=== PATIENT | female | born 1965 | race Caucasian/White ===

== ENCOUNTER 2017-01-17 21:44 | Emergency (ER) | payer MEDICAID ==
[~2017-01-17] VITALS: Ht 162.6 cm; Wt 142.0 kg
[~2017-01-17 21:44] MED LIST: ALBU-136 IH; ASPI81EC97 PO; DOCU-67 PO; ESCI10TA61 PO; HYDR-4446 PO; INSU100S22 SUBQ; METO10TA10 PO; Metoprolol Tartrate PO; Pantoprazole Sodium PO; SYN.1 PO
[2017-01-17 21:52] VITALS: BP 137/86
[2017-01-17 22:16] LABS: BASOPHILS # (AUTO) 0.1 K/uL (0.00-0.22); BASOPHILS % (AUTO) 0.8 % (0.0-2.0); EOSINOPHILS # (AUTO) 0.4 K/uL (0-0.4); EOSINOPHILS % (AUTO) 4.1 % (0.0-4.0); HEMATOCRIT 36.4 % (36-48); HEMOGLOBIN 11.5 g/dL (12.0-16.0); LYMPHOCYTES % (AUTO) 30.8 % (20.5-51.1); MEAN CORPUSCULAR HEMOGLOBIN 26 pg (27-31); MEAN CORPUSCULAR HGB CONC 32 g/dL (33-37); MEAN CORPUSCULAR VOLUME 83 fL (80-94); MONOCYTES # (AUTO) 0.7 K/uL (0.8-1.0); MONOCYTES % (AUTO) 7.2 % (1.7-9.3); NEUTROPHILS # (AUTO) 5.5 K/uL (1.8-7.7); NEUTROPHILS % (AUTO) 57.1 % (42.2-75.2); PLATELET COUNT (AUTO) 317 K/uL (140-450); RED CELL DISTRIBUTION WIDTH 18.6 % (11.6-13.7); WHITE BLOOD COUNT (AUTO) 9.7 K/uL (4.8-10.8)
[2017-01-17 22:33] LABS: ANION GAP 10.6 (8-16); CALCIUM 9.3 mg/dL (8.5-10.1); CARBON DIOXIDE 34.3 mmol/L (21-32); CREATININE 1.3 mg/dL (0.6-1.3); POTASSIUM 3.9 mmol/L (3.5-5.1)
[2017-01-17 22:36] LABS: INR 1.1 (0.8-1.2); PARTIAL THROMBOPLASTIN TIME 25.6 secs (22-35.6)
[2017-01-17 22:40] LABS: ALBUMIN 3.5 g/dL (3.4-5.0); TOTAL BILIRUBIN 0.4 mg/dL (0.0-1.0); TOTAL PROTEIN, SERUM 7.7 g/dL (6.4-8.2)
--- NOTE | 2017-01-18 01:20 | NUR ---
TO ER BED 8
--- NOTE | 2017-01-18 01:35 | NUR ---
51 Y/O HERE W/C/O SOB, CHEST/ BACK PAIN AND EDEMA TO LOWER EXTREMITITES AND HANDS X YESTERDAY. DENIES ANY FEVER, N/V/D. PT ON GUM ROLLING MACHINE TENDER VSS. EDEMA TO LOWER EXTREMITIES NOTED, NO S/S OF RESP DISTRESS, O2 SAT 95% RA, SLIGHTLY WHEEZES BILATERAL, NO NASAL FLARING. ER MD MADE AWARE.
--- NOTE | 2017-01-18 01:35 | NUR ---
Note undone in EDM - 01/18/17 at 0238 by TAMMI 51 Y/O HERE W/C/O SOB, CHEST/ BACK PAIN AND EDEMA TO LOWER EXTREMITITES AND HANDS X YESTERDAY. DENIES ANY FEVER, N/V/D. PT ON RADIOLOGIC ELECTRONIC SPECIALIST VSS. EDEMA TO LOWER EXTREMITIES NOTED, NO S/S OF RESP DISTRESS, O2 SAT 95% RA, NO WHEEZES PRESENT. ER MADE AWARE.
[2017-01-18] MEDS ORDERED: predniSONE 20 MG TAB PO ONE (02:20)
[2017-01-18] MEDS ORDERED: ALBUTEROL 0.083% 2.5 MG/3 ML NEBU INH ONE (02:20)
[2017-01-18] MEDS ORDERED: ALBUTEROL SULFATE/IPRATROPIU 3 ML SOL IH ONE (02:20)
[2017-01-18] MEDS ORDERED: predniSONE 20 MG TAB ONE (02:37)
--- NOTE | 2017-01-18 02:39 | NUR ---
RT AT BEDSIDE, PT ON BREATHING TX
[2017-01-18 02:53] VITALS: BP 126/69
--- NOTE | 2017-01-18 02:54 | NUR ---
Patient discharged with v/s stable. Written and verbal after care instructions given and explained. Patient alert, oriented and verbalized understanding of instructions. Ambulatory with steady gait. All questions addressed prior to discharge. ID band removed. Patient advised to follow up with PMD. Rx of PREDNISONE AND MOTRIN given. Patient educated on indication of medication including possible reaction and side effects. Opportunity to ask questions provided and answered.
== END 2017-01-18 02:53 | disposition home or self-care (01) ==
LOC: MED 21:44
DX: R07.89 Other chest pain (principal); R06.02 Shortness of breath; J45.909 Unspecified asthma, uncomplicated; E11.9 Type 2 diabetes mellitus without complications; I10 Essential (primary) hypertension; Z79.4 Long term (current) use of insulin; Z79.82 Long term (current) use of aspirin
CPT/HCPCS: 36415; 71010; 80053; 83880; 84484; 85025; 85610; 85730; 93005; 94640; 99285; J7512; J7613; J7620

== ENCOUNTER 2017-04-13 17:25 | Emergency (ER) | payer MEDICAID ==
[~2017-04-13] VITALS: Ht 165.1 cm; Wt 139.9 kg
--- NOTE | 2017-04-13 17:43 | NUR ---
CALLED PT TO BE TRIAGED FROM LOBBY; NO ANSWER; WILL CALL AGAIN.
[2017-04-13 17:46] VITALS: BP 141/85
[2017-04-13] MEDS ORDERED: NACL 0.9% 1,000 ML IV SCH (17:58)
[2017-04-13] MEDS ORDERED: NACL 0.9% 1,000 ML IV ONE (18:00)
[2017-04-13] MEDS ORDERED: INSULIN HUMAN REGULAR 100 UNITS/ML 10 ML VIAL IVP ONE ×2 (18:00→19:05)
[2017-04-13 18:23] LABS: BASOPHILS # (AUTO) 0.1 K/uL (0.00-0.22); EOSINOPHILS # (AUTO) 0.3 K/uL (0-0.4); EOSINOPHILS % (AUTO) 2.6 % (0.0-4.0); HEMATOCRIT 35.1 % (36-48); HEMOGLOBIN 10.9 g/dL (12.0-16.0); LYMPHOCYTES # (AUTO) 3.1 K/uL (2.5-16.5); LYMPHOCYTES % (AUTO) 32.1 % (20.5-51.1); MEAN CORPUSCULAR HEMOGLOBIN 26 pg (27-31); MEAN CORPUSCULAR HGB CONC 31 g/dL (33-37); MEAN CORPUSCULAR VOLUME 85 fL (80-94); MONOCYTES # (AUTO) 0.7 K/uL (0.8-1.0); MONOCYTES % (AUTO) 7.2 % (1.7-9.3); NEUTROPHILS # (AUTO) 5.5 K/uL (1.8-7.7); NEUTROPHILS % (AUTO) 57.1 % (42.2-75.2); PLATELET COUNT (AUTO) 268 K/uL (140-450); RED BLOOD CELL COUNT(AUTO) 4.15 MIL/uL (4.20-5.40); RED CELL DISTRIBUTION WIDTH 19.3 % (11.6-13.7); WHITE BLOOD COUNT (AUTO) 9.7 K/uL (4.8-10.8)
[2017-04-13 18:36] LABS: ALBUMIN 3.5 g/dL (3.4-5.0); ANION GAP 13.1 (8-16); CARBON DIOXIDE 29.6 mmol/L (21-32); CREATININE 1.2 mg/dL (0.6-1.3); INR 1.1 (0.8-1.2); POTASSIUM 4.7 mmol/L (3.5-5.1); PROTHROMBIN TIME 10.8 secs (10.8-13.4); TOTAL BILIRUBIN 0.5 mg/dL (0.0-1.0); TOTAL PROTEIN, SERUM 8.3 g/dL (6.4-8.2)
[2017-04-13 18:37] LABS: PARTIAL THROMBOPLASTIN TIME 19.6 secs (22-35.6)
[2017-04-13] MEDS ORDERED: NACL 0.9% 2,000 ML IV ONE (19:05)
--- NOTE | 2017-04-13 19:10 | NUR ---
51Y/F PATIENT PRESENTS TO ED WITH 51F BIB FRIEND C/O HIGH BLOOD SUGAR AND RAPID HEART RATE X TODAY, WAS ADMITTED IN HOSPITAL 5 DAYS AGO FOR HTN, HYPERGLYCEMIA, DENIES N/V/D; SKIN IS PINK/WARM/DRY; AAOX4 WITH EVEN AND STEADY GAIT; LUNGS CLEAR BL; HR EVEN AND REGULAR; PT DENIES ANY FEVER, CP, SOB, OR COUGH AT THIS TIME; BOTH LEGS PAIN, PATIENT STATES PAIN OF 9/10 AT THIS TIME; VSS; PATIENT POSITIONED FOR COMFORT; HOB ELEVATED; BEDRAILS UP X2; BED DOWN. ER MD MADE AWARE OF PT STATUS.
--- NOTE | 2017-04-13 19:12 | NUR ---
Patient being evaluated by DR. MENA at bedside.
[2017-04-13] MEDS ORDERED: KETOROLAC 30 MG/ML VIAL IVP ONE (19:45)
--- NOTE | 2017-04-13 21:10 | NUR ---
Patient discharged with v/s stable. Written and verbal after care instructions given and explained. Patient alert, oriented and verbalized understanding of instructions. Ambulatory with steady gait. All questions addressed prior to discharge. ID band removed. Patient advised to follow up with PMD. Rx of NAPROSYN 500 MG given. Patient educated on indication of medication including possible reaction and side effects. Opportunity to ask questions provided and answered.
[2017-04-13 21:11] VITALS: BP 139/91
== END 2017-04-13 21:10 | disposition home or self-care (01) ==
LOC: MED 17:25
DX: E11.65 Type 2 diabetes mellitus with hyperglycemia (principal); I10 Essential (primary) hypertension; E03.9 Hypothyroidism, unspecified; J45.909 Unspecified asthma, uncomplicated; F41.9 Anxiety disorder, unspecified; Z79.4 Long term (current) use of insulin; Z79.899 Other long term (current) drug therapy; Z79.82 Long term (current) use of aspirin
CPT/HCPCS: 36415; 71010; 80053; 82150; 82553; 82948; 83690; 83880; 84484; 85025; 85610; 85730; 93005; 96361; 96374; 96375; 99285; J1815; J1885; J7030; Q0092

== ENCOUNTER 2018-12-14 15:08 | Emergency (ER) | payer MEDICAID ==
[~2018-12-14] VITALS: Ht 167.6 cm; Wt 113.4 kg
[~2018-12-14 15:08] MED LIST changes: +ACET-8386 PO; +ATOR20TA40 PO; +CELE-136 PO; +DOCU-299 PO; -DOCU-67 PO; -ESCI10TA61 PO; +FURO20TA8 PO; +GABA600T12 PO; -HYDR-4446 PO; +LACT10CA PO; +LEVO750T2 PO; +LISI-424 PO; +METF-336 PO; -METO10TA10 PO; -Metoprolol Tartrate PO; -SYN.1 PO; +[UNRECOGNIZED DRUG - CODE] PO
[2018-12-14 15:15] VITALS: BP 117/54
--- NOTE | 2018-12-14 15:25 | NUR ---
PT AMBULATED TO ER BED 07
--- NOTE | 2018-12-14 15:27 | NUR ---
PT PRESENTED TO THE ED WITH THE CHIEF C/O LEFT CHEST PAIN STARTED A WHILE AGO. PT REPORTS PAIN RADIATES TO NECK AND BACK. DENIES ANY NUUSEA OR VOMITING AT THIS TIME. DENIES DIZZINESS. REPORTS DIFFICULTY BREATHING. CLEAR LUNGS SOUND. PLACED PT ON O2 AT 2 LTR/MIN. SPO2 96%. GENERALIZED EDEMA NOTED. STATES PAIN 07/08. ER MD AWARE.
[2018-12-14] MEDS ORDERED: FUROSEMIDE 100 MG/10 ML VIAL IVP ONE (15:30)
[2018-12-14 16:19] LABS: APPEARANCE,URINE CLEAR (CLEAR); BILIRUBIN,URINE NEGATIVE (NEGATIVE); BLOOD, URINE NEGATIVE (NEGATIVE); COLOR,URINE YELLOW (YELLOW); LEUKOCYTE ESTERASE ,URINE NEGATIVE (NEGATIVE); NITRITE, URINE NEGATIVE (NEGATIVE); UGLUCOSE 3+ (NEGATIVE)
[2018-12-14] MEDS ORDERED: MORPHINE SULFATE 4 MG/ML SYR IVP ONE ×2 (16:20→23:00)
[2018-12-14] MEDS ORDERED: MAG SULF 2000 MG/WATER PREMIX 50 ML IV ONE (16:20)
[2018-12-14 16:21] LABS: BASOPHILS # (AUTO) 0.1 K/uL (0.00-0.22); BASOPHILS % (AUTO) 1.1 % (0.0-2.0); EOSINOPHILS # (AUTO) 0.2 K/uL (0-0.4); EOSINOPHILS % (AUTO) 2.3 % (0.0-4.0); HEMATOCRIT 24.8 % (36-48); HEMOGLOBIN 7.6 g/dL (12.0-16.0); LYMPHOCYTES # (AUTO) 2.2 K/uL (2.5-16.5); LYMPHOCYTES % (AUTO) 31.7 % (20.5-51.1); MEAN CORPUSCULAR HEMOGLOBIN 22 pg (27-31); MEAN CORPUSCULAR HGB CONC 31 g/dL (33-37); MEAN CORPUSCULAR VOLUME 73.1 fL (80-94); MONOCYTES # (AUTO) 0.4 K/uL (0.8-1.0); MONOCYTES % (AUTO) 6.3 % (1.7-9.3); NEUTROPHILS % (AUTO) 58.6 % (42.2-75.2); PLATELET COUNT (AUTO) 244 K/uL (140-450); RED BLOOD CELL COUNT(AUTO) 3.39 MIL/uL (4.20-5.40); WHITE BLOOD COUNT (AUTO) 6.9 K/uL (4.8-10.8)
[2018-12-14 16:36] LABS: ANION GAP 8.9 (8-16); CARBON DIOXIDE 31.1 mmol/L (21-32); CREATININE 1.1 mg/dL (0.6-1.3)
[2018-12-14 16:41] LABS: ACETONE, SERUM NEGATIVE (NEGATIVE)
[2018-12-14 16:42] LABS: ALBUMIN 3.3 g/dL (3.4-5.0); TOTAL BILIRUBIN 0.4 mg/dL (0.0-1.0)
[2018-12-14 16:44] LABS: PROTHROMBIN TIME 10.7 secs (10.8-13.4)
[2018-12-14] MEDS ORDERED: INSULIN REGULAR, HUMAN 100 UNIT/ML VIAL IVP ONE (16:50)
[2018-12-14] MEDS ORDERED: FAMOTIDINE 20 MG/2 ML VIAL IVP ONE (16:50)
[2018-12-14] MEDS ORDERED: ONDANSETRON 4 MG/2 ML VIAL IVP ONE (17:00)
--- NOTE | 2018-12-14 17:27 | NUR ---
PT VERBALIZED FEELING BETTER. PT STILL REPORTS LITTLE DIFFICULTY BREATHING. CONTINUE ON O2 AT 2 LTR/MIN. DENIES ANY NAUSEA, DIZZINESS. VERBALIZED PAIN DECREASED.
[2018-12-14 17:39] LABS: MAGNESIUM 1.7 mg/dL (1.8-2.4); URIC ACID 4.1 mg/dL (2.6-7.2)
[2018-12-14 18:55] LABS: THYROID STIMULATING HORMONE 212.73 uIU/mL (0.34-3.74)
--- NOTE | 2018-12-14 19:19 | NUR ---
REPROT GIVEN TO SPOUTER RN FOR CONTINUITY OF CARE.
--- NOTE | 2018-12-14 19:20 | NUR ---
RECEIVED REPORT FROM AM SHIFT. WILL CONTINUE CONTINUITY OF CARE.
--- NOTE | 2018-12-14 20:45 | NUR ---
ETA FOR TRANSER TO [facility] 60 MIN.
[2018-12-14] MEDS ORDERED: MORPHINE SULFATE 2 MG/ML SYR ONE (23:09)
--- NOTE | 2018-12-14 23:17 | NUR ---
PT CO PAIN 10/ ADMINISTERED MORPHINE 2MG IVP. WILL CONTINUE TO MONITOR.
--- NOTE | 2018-12-15 00:03 | NUR ---
PT RESTING QUIETLY AT THIS TIME. NO SIGNS OF ACUTE DISTRESS AT THIS TIME.
--- NOTE | 2018-12-15 00:28 | NUR ---
Note mitalione in EDM - 12/15/18 at 0030 by [email or web address] 7Y/F BIB PARENTS FOR NOSEBLEED 30-40 MIN. DENIES PAIN, DENIES NVD. AOX4. ABLE TO VERBALIZE NEEDS. EVEN UNLABORED BREATHING. CONTINUE TO MONITOR.
--- NOTE | 2018-12-15 00:51 | NUR ---
[facility] AT BEDSIDE.
--- NOTE | 2018-12-15 00:55 | NUR ---
PT TAKEN BY [facility] TO [facility] ROOM 304
--- NOTE | 2018-12-15 00:55 | NUR ---
Patient to be transferred to [facility]. Is being transferred due to ABNORMAL EKG. Receiving facility has accepting physician and available space. ER physician has signed transfer form. Patient or responsible democrat has agreed to transfer and signed form. Patient belongings inventoried and will be sent with patient. Copy of nursing notes, lab reports, EKG, Physicians Orders and X-rays to be sent with patient. Report called to J CARLOS at receiving facility. [facility] ambulance service has been called for transfer. ETA is 40.
[2018-12-15 01:39] VITALS: BP 109/59
== END 2018-12-15 00:55 | disposition short-term general hospital (02) ==
LOC: MED 15:08
DX: I11.0 Hypertensive heart disease with heart failure (principal); I50.9 Heart failure, unspecified; E11.65 Type 2 diabetes mellitus with hyperglycemia; E03.9 Hypothyroidism, unspecified; E66.01 Morbid (severe) obesity due to excess calories; J45.909 Unspecified asthma, uncomplicated; I10 Essential (primary) hypertension; E07.9 Disorder of thyroid, unspecified; Z68.41 Body mass index [BMI] 40.0-44.9, adult; Z79.2 Long term (current) use of antibiotics; Z79.84 Long term (current) use of oral hypoglycemic drugs
CPT/HCPCS: 36415; 71045; 80053; 81003; 82009; 82948; 83036; 83735; 83880; 84439; 84443; 84479; 84484; 84550; 85025; 85379; 85610; 85730; 93005; 96365; 96366; 96375; 96376; 99285; J1815; J1940; J2270; J2405; J3475; J3490; Q0092

== ENCOUNTER 2019-12-10 10:21 | Emergency (ER) | payer MEDICAID ==
[~2019-12-10] VITALS: Ht 170.2 cm; Wt 122.9 kg
[2019-12-10 10:25] VITALS: BP 125/71
[2019-12-10] MEDS ORDERED: KETOROLAC 60 MG/2 ML VIAL IM ONE (11:30)
[2019-12-10 11:56] VITALS: BP 125/71
== END 2019-12-10 11:57 | disposition home or self-care (01) ==
LOC: MED 10:21
DX: M43.6 Torticollis (principal); J45.909 Unspecified asthma, uncomplicated; I11.9 Hypertensive heart disease without heart failure; E11.9 Type 2 diabetes mellitus without complications; E07.9 Disorder of thyroid, unspecified; Z98.890 Other specified postprocedural states
CPT/HCPCS: 72040; 82948; 96372; 99283; J1885

== ENCOUNTER 2021-05-28 20:33 | Inpatient (IN) | payer MEDICAID, SELFPAY ==
[~2021-05-28] VITALS: Ht 167.6 cm; Wt 122.9 kg
[2021-05-28 20:33] VITALS: BP 100/58
[~2021-05-28 20:33] MED LIST changes: +ALBU-118 IH; -ALBU-136 IH; -LISI-424 PO; +LISI-648 PO
--- NOTE | 2021-05-28 20:33 | NUR ---
NIGHAT DOS SANTOS TAKEN TO BED #6
[2021-05-28] MEDS ORDERED: ONDANSETRON 4 MG/2 ML VIAL IVP ONE (20:45)
[2021-05-28] MEDS ORDERED: FUROSEMIDE 40 MG/4 ML VIAL IVP ONE (20:45)
[2021-05-28] MEDS ORDERED: MORPHINE SULFATE 4 MG/ML SYR IVP ONE (20:45)
--- NOTE | 2021-05-28 20:54 | NUR ---
56 YO/F BIBA W C/O L SIDED CHEST PAIN 9/10 PRESSURE LIKE RADIATING TO L UPPER BACK INTERMITTENT X1 WEEK, MOST RECENT EPISODE CONSTANT X1 HOUR AND SLIGHT SOB. PATIENT DENIES N/V/D, OR DIZZYNESS, OR LIGHT-HEADED. S1 S2 PRESENT, +2 RADIAL PULSES, SWELLING TO BILATERAL UPPER AND LOWER EXTREMITIES NON-PITTING, SKIN WARM AND DRY, CAP REFIL <3SEC, LUNG SOUNDS CLEAR W BREATHING EVEN AND UNLABORED. PATIENT CONNECTED TO MONITOR W VSS 79HR, 100/58 BP, 19RR, 99 O2 SAT ON 2L NC. PATIENT LAYING IN BED LOCKED IN LOWEST POSITION, X1 SIDE RAIL UP, HOB ELEVATED. WILL CONTINUE TO MONITOR. PMH: HTN, DIABETES, CHF, ASTHMA, THYROID DZ, NEUROPATHY NKA
[2021-05-28 21:13] LABS: BASOPHILS # (AUTO) 0.1 K/uL (0.00-0.22); BASOPHILS % (AUTO) 1.9 % (0.0-2.0); EOSINOPHILS # (AUTO) 0.2 K/uL (0-0.4); EOSINOPHILS % (AUTO) 2.6 % (0.0-4.0); HEMATOCRIT 27.8 % (36-48); HEMOGLOBIN 8.4 g/dL (12.0-16.0); LYMPHOCYTES # (AUTO) 1.7 K/uL (2.5-16.5); LYMPHOCYTES % (AUTO) 26.1 % (20.5-51.1); MEAN CORPUSCULAR HEMOGLOBIN 24 pg (27-31); MEAN CORPUSCULAR HGB CONC 30 g/dL (33-37); MEAN CORPUSCULAR VOLUME 77.8 fL (80-94); MONOCYTES # (AUTO) 0.4 K/uL (0.8-1.0); MONOCYTES % (AUTO) 6.3 % (1.7-9.3); NEUTROPHILS # (AUTO) 4.1 K/uL (1.8-7.7); NEUTROPHILS % (AUTO) 63.1 % (42.2-75.2); PLATELET COUNT (AUTO) 234 K/uL (140-450); RED BLOOD CELL COUNT(AUTO) 3.57 MIL/uL (4.20-5.40); RED CELL DISTRIBUTION WIDTH 21.2 % (11.6-13.7); WHITE BLOOD COUNT (AUTO) 6.5 K/uL (4.8-10.8)
[2021-05-28 21:27] LABS: ALBUMIN 3.4 g/dL (3.4-5.0); ANION GAP 10.1 (8-16); CARBON DIOXIDE 31.8 mmol/L (21-32); POTASSIUM 3.9 mmol/L (3.5-5.1); PROTHROMBIN TIME 10.8 secs (10.8-13.4); TOTAL BILIRUBIN 0.3 mg/dL (0.0-1.0)
--- NOTE | 2021-05-28 22:28 | NUR ---
PATIENT LAYING IN BED LOCKED IN LOWEST POSTION, X1 SIDERAIL UP, HOB ELEVATED. CONNECTED TO MONITOR W VSS. PATIENT REPORTS FEELING A LITTLE BETTER. BREATHING EVEN AND UNLABORED, NAD NOTED, WILL CONTINUE TO MONITOR.
--- NOTE | 2021-05-28 22:30 | NUR ---
PATIENT REFUSING TO BE ON NC O2 AT THIS TIME. PATIENT O2 SAT AT 88% RA. EDUCATED PATIENT ON O2 SATURATION. PATIENT REPORTS SHE WILL PUT OXYGEN BACK ON WHEN SHE WANTS TO , REPORTS SHE FEELS GOOD W/O THE OXYGEN DENIES SOB.
--- NOTE | 2021-05-28 22:32 | NUR ---
PATIENT O2 SATURATION AT 86%, SPOKE TO PATIENT IN REGARDS TO NC USE. PATIENT AGREED TO BE PLACED BACK ON NC 2L. O2SAT IMPROVED TO 95%. WILL CONTINUE TO MONITOR.
--- NOTE | 2021-05-29 00:15 | NUR ---
PATIENT AMBULATED TO BATHROOM W STEADY GAIT.
--- NOTE | 2021-05-29 01:25 | NUR ---
PATIENT LAYING IN BED W EYES CLOSED L LATERAL POSITION. BED LOCKED IN LOWEST POSTION, HOB ELEVATED, X1 SIDERAIL UP. BREATHING EVEN AND UNLABORED. NAD NOTED. WILL CONTINUE TO MONITOR.
[2021-05-29] MEDS ORDERED: KCL 20 MEQ/WATER INJ PREMIX 200 ML IV PRN (01:50)
[2021-05-29] MEDS ORDERED: ACETAMINOPHEN 325 MG TAB PO PRN (01:50)
[2021-05-29] MEDS ORDERED: ZOLPIDEM 5 MG TAB PO PRN (01:50)
[2021-05-29] MEDS ORDERED: MAGNESIUM OXIDE 400 MG TAB PO PRN (01:50)
[2021-05-29] MEDS ORDERED: MAG SULF 2000 MG/WATER PREMIX 50 ML IV PRN (01:50)
[2021-05-29] MEDS ORDERED: ONDANSETRON 4 MG/2 ML VIAL IVP PRN (01:50)
[2021-05-29] MEDS ORDERED: POTASSIUM CHLORIDE 10 MEQ TABER PO PRN (01:50)
--- NOTE | 2021-05-29 04:00 | NUR ---
DOWNTIME. SEE PATIENT CHART FOR PATIENT STATUS AT THIS TIME.
--- NOTE | 2021-05-29 07:20 | NUR ---
Pt report given to MORIS ARECHIGA . Transfer of care at this time.
--- NOTE | 2021-05-29 07:20 | NUR ---
Report and continuation of care received from MORIS Snell.
--- NOTE | 2021-05-29 07:39 | NUR ---
Patient resting with both eyes closed in position of comfort. SpO2 98% on 2L via N/C. mainframe systems administrator remains in place. RR even/unlabored. No distress noted. Bed locked in lowest position, side rails x 1, call light in reach.
--- NOTE | 2021-05-29 07:45 | NUR ---
IV flushed with NS 0.9% with good blood return; no swelling, coolness, pain noted.
[2021-05-29 07:58] LABS: BASOPHILS # (AUTO) 0.1 K/uL (0.00-0.22); EOSINOPHILS # (AUTO) 0.1 K/uL (0-0.4); EOSINOPHILS % (AUTO) 0.9 % (0.0-4.0); HEMATOCRIT 31.5 % (36-48); HEMOGLOBIN 9.5 g/dL (12.0-16.0); LYMPHOCYTES # (AUTO) 1.2 K/uL (2.5-16.5); LYMPHOCYTES % (AUTO) 13.9 % (20.5-51.1); MEAN CORPUSCULAR HEMOGLOBIN 24 pg (27-31); MEAN CORPUSCULAR HGB CONC 30 g/dL (33-37); MEAN CORPUSCULAR VOLUME 78.2 fL (80-94); MONOCYTES # (AUTO) 0.7 K/uL (0.8-1.0); MONOCYTES % (AUTO) 8.1 % (1.7-9.3); NEUTROPHILS # (AUTO) 6.7 K/uL (1.8-7.7); NEUTROPHILS % (AUTO) 76.1 % (42.2-75.2); PLATELET COUNT (AUTO) 178 K/uL (140-450); RED BLOOD CELL COUNT(AUTO) 4.03 MIL/uL (4.20-5.40); RED CELL DISTRIBUTION WIDTH 21.1 % (11.6-13.7); WHITE BLOOD COUNT (AUTO) 8.8 K/uL (4.8-10.8)
--- NOTE | 2021-05-29 08:00 | NUR ---
Patient requesting to hold breakfast tray at this time.
[2021-05-29 08:54] LABS: ANION GAP 12.1 (8-16); POTASSIUM 4.1 mmol/L (3.5-5.1)
[2021-05-29] MEDS: ENOXAPARIN 40 MG/0.4 ML SYR SUBQ SCH (09:26)
--- NOTE | 2021-05-29 09:26 | NUR ---
Breakfast meal tray at bedside. Patient completing meal at this time. All needs met.
--- NOTE | 2021-05-29 09:48 | NUR ---
Patient sitting upright completed 70% of meal at this time. Apple juice given. Patient denies any SOB. VSS; respirations even/unlabored. Bed locked in lowest position, side rails x 1.
--- NOTE | 2021-05-29 10:45 | NUR ---
Patient resting in high-fowlers in position of comfort. bus driver/monitor in place. VSS; respirations even/unlabored. SpO2 98% on 2L NC. Bed locked in lowest position, side rails x 1.
--- NOTE | 2021-05-29 11:25 | NUR ---
Dr. Nava is evaluating patient at bedside.
[2021-05-29] MEDS ORDERED: DEXTROSE 50% 50 ML SYR IVP PRN (11:30)
[2021-05-29] MEDS ORDERED: DOCUSATE SODIUM 100 MG GELCAP PO PRN (11:35)
--- NOTE | 2021-05-29 11:40 | NUR ---
ABG COMPLETED SUPPLEMENTAL OXYGEN AT 2 LPM VIA NC DIAGNOSTIC SATURATION MONITORING 97%
--- NOTE | 2021-05-29 11:40 | NUR ---
RT at bedside for ABG
--- NOTE | 2021-05-29 11:45 | NUR ---
Patient resting in high-fowlers in position of comfort. panel monitor in place. VSS; respirations even/unlabored. SpO2 96% on 2L NC. Bed locked in lowest position, side rails x 1.
--- NOTE | 2021-05-29 11:52 | NUR ---
CALLED DR. SHELLIE BECKFORD AT [facility] [phone] SPOKE BARBER/JUANCHO FUIL PAGE FORMENTIONED MD CALL BACK NUMBER GIVEN [phone]
[2021-05-29] MEDS: BLOOD GLUCOSE MONITORING 1 DEV DEV FS SCH ×3 (12:00→20:27)
[2021-05-29] MEDS: lisinopriL 5 MG TAB PO SCH (12:18)
[2021-05-29] MEDS: FUROSEMIDE 40 MG/4 ML VIAL IVP SCH ×2 (12:19→16:32)
--- NOTE | 2021-05-29 12:20 | NUR ---
RT at bedside for BiPAP 14/05 RATE 12 32%
[2021-05-29 12:25] VITALS: BP 127/74
--- NOTE | 2021-05-29 12:30 | NUR ---
Patient presents on phone with family. Patient tolerating mask well; denies any SOB, discomfort at this time. groundwater monitoring technician in place. VSS; respirations even/unlabored. SpO2 100% on BiPAP. Bed locked in lowest position, side rails x 1.
--- NOTE | 2021-05-29 12:39 | NUR ---
[address]ND CALL FOR DR. SHELLIE BECKFORD [phone] TO REVIEW ABG SAMPLE REPORT SPOKE TO FRED/BRANDON WILL PAGE FOREMENTIONED CALL BACK NUMBER GIVEN [phone]
[2021-05-29] MEDS: INSULIN LISPRO SLIDING SCALE 100 UNITS/ML VIAL SUBQ PRN (12:41)
--- NOTE | 2021-05-29 13:11 | NUR ---
PATIENT AMBULATED TO RESTROOM WITH STEADY/EVEN GAIT; REQUESTING TO VOID AFTER LASIX 40MG IVP.
--- NOTE | 2021-05-29 13:15 | NUR ---
Patient back onto bed and placed back onto BIPAP mask. Denies any SOB, discomfort at this time. playground monitor in place. VSS; respirations even/unlabored. SpO2 100% on BiPAP. Bed locked in lowest position, side rails x 1.
--- NOTE | 2021-05-29 14:30 | NUR ---
Patient resting in high-fowlers in position of comfort. equipment monitor phototypesetting in place. VSS; respirations even/unlabored. SpO2 100% on BiPAP. Bed locked in lowest position, side rails x 1.
--- NOTE | 2021-05-29 14:49 | NUR ---
Lab at bedside for redraw
--- NOTE | 2021-05-29 15:39 | NUR ---
Report given to Chantel advised of ETA 10 min.
--- NOTE | 2021-05-29 15:45 | NUR ---
Dr. Rodriguez is evaluating patient at bedside
[2021-05-29 16:00] VITALS: BP 109/74
--- NOTE | 2021-05-29 16:00 | NUR ---
Patient will be admitted to care of Dr. Nava. Admited to Telemetry. Will go to room 115. Belongings list completed. Report to MORIS Golden.
--- NOTE | 2021-05-29 16:00 | NUR ---
PT CAME TO THE UNIT FROM ED VIA GUREL. PT IS DIRECTED TO THE UNIT, CHANGED IN TO YELLOW GOWN, ALL BELONGING ARE PROVIDED. CHECKED VITALS, MRSA SAMPLE TAKEN. PT IS CONNECTED TO SCREW DRIVER OPERATOR. WATER AND FOOD PROVIDED. ADMINISTERED PAIN MEDICATIONS AND ALL OTHER PRESCRIBED MEDICATIONS. PROVIDED BED SIDE COMMODE. SAFETY MEASURES TAKEN CALL LIGHT WITH IN REACH. ALL SAFETY MEASURES ARE IN PLACED.
[2021-05-29] MEDS: HYDROcodone/APAP 5/325 MG 1 TAB TAB PO PRN (16:32)
--- NOTE | 2021-05-29 19:32 | NUR ---
endorsed the night nurse for continuity of care
--- NOTE | 2021-05-29 19:40 | NUR ---
RECIEVED BEDSIDE ENDORSEMENT FROM DAY SHIFT RN, PT LYING IN BED RESTING, A&0X2/3, ABLE TO MAKE NEEDS KNOWN AND FOLLOWS SIMPLE COMMANDS, AFEBRILE, VSS, PT ON BIPAP FIO2 32%, ABD SOFT AND NON TENDER TO TOUCH, SKIN WARM DRY AND INTACT, LAC 18 G PIV INTACT PATENT AND FLUSHED, PT SHOWING NO SIGNS OF ACUTE DISTRESS, SAFETY MEASURES IN PLACE, WILL CONTINUE WITH CURRENT POC
[2021-05-29 20:00] VITALS: BP 113/78
[2021-05-29] MEDS: INSULIN LANTUS 100 UNITS/ML 10 ML VIAL SUBQ SCH (20:27)
[2021-05-29] MEDS: GABAPENTIN 300 MG CAP PO SCH (20:40)
[2021-05-29] MEDS ORDERED: NON-FORMULARY ITEM (Gabapentin 600 MG) PO SCH (21:00)
[2021-05-29] MEDS ORDERED: NON-FORMULARY ITEM (Insulin Glargine,Hum.rec.anlog (Lantus Solostar) 30 UNIT) SUBQ SCH (21:00)
--- NOTE | 2021-05-29 21:40 | NUR ---
PAGED DOCTOR. DR. RIDDLE CALLED BACK IMMEDIATELY. DR. RIDDLE WAS INFORMED THAT PT IS HAS SHALLOW BREATHS AND NOT BREATHING ABOVE THE BACK RATE ON BiPAP. TOLD DOCTOR CHANGES MADE ON BiPAP. INCREASE PS AND BACK RATE. AND VOLUME SLIGHTLY IMPROVED. DR. RIDDLE OK WITH CURRENT SETTINGS. IPAP 16, EPAP 5, BACK RATE 20. FiO2 30%. ABG IN AN HOUR PER DR. RIDDLE.
--- NOTE | 2021-05-29 23:44 | NUR ---
ADMINISTERED 2100H MEDICATION PER ORDER, BLOOG GLUCOSE 108, NO NEED FOR INSULIN COVERAGE Addendum: 05/29/21 at 2345 by Martin Michael RN DONE AT 0H. INSERTED WRONG TIME SLOT FOR NOTE
[2021-05-30] VITALS: BP 95/57
--- NOTE | 2021-05-30 00:43 | NUR ---
PAGED DR. RIDDLE. DR. RIDDLE CALLED BACK IMMEDIATELY AND ABG CRITICAL RESULTS WERE GIVEN. NO CHANGES MADE TO BiPAP SETTINGS AT THIS TIME. PER DR. RIDDLE ORDER ABG @ 0800. WILL CONTINUE TO MONITOR PT.
--- NOTE | 2021-05-30 01:19 | NUR ---
PT APPEARS TO BE ASLEEP AND SHOWING NO SIGNS OF ACUTE DISTRESS
--- NOTE | 2021-05-30 01:30 | NUR ---
TITRATED FiO2 TO 35% DUE TO LOW SPO2 90. SPO2 IMPROVED TO 99%. WILL CONTINUE TO MONITOR PT.
--- NOTE | 2021-05-30 03:14 | NUR ---
PT APPEARS TO BE ASLEEP AND SHOWING NO SIGNS OF ACUTE DISTRESS
[2021-05-30 04:00] VITALS: BP 110/68
[2021-05-30] MEDS: LEVOTHYROXINE 0.1 MG TAB PO SCH (06:18)
[2021-05-30] MEDS: BLOOD GLUCOSE MONITORING 1 DEV DEV FS SCH ×4 (06:19→21:00)
--- NOTE | 2021-05-30 06:19 | NUR ---
ADMINISTERED 0630H [facility], BLOOD GLUCOSE 115, NO INSULIN COVERAGE NEEDED
[2021-05-30] MEDS ORDERED: LEVOTHYROXINE SODIUM 300 MCG PO SCH (06:30)
[2021-05-30] MEDS ORDERED: PANTOPRAZOLE SODIUM 40 MG PO SCH (06:30)
[2021-05-30 06:52] LABS: BASOPHILS # (AUTO) 0.1 K/uL (0.00-0.22); EOSINOPHILS # (AUTO) 0.2 K/uL (0-0.4); EOSINOPHILS % (AUTO) 2.3 % (0.0-4.0); HEMATOCRIT 28.7 % (36-48); HEMOGLOBIN 8.7 g/dL (12.0-16.0); LYMPHOCYTES % (AUTO) 27.4 % (20.5-51.1); MEAN CORPUSCULAR HEMOGLOBIN 24 pg (27-31); MEAN CORPUSCULAR HGB CONC 30 g/dL (33-37); MEAN CORPUSCULAR VOLUME 77.6 fL (80-94); MONOCYTES # (AUTO) 0.5 K/uL (0.8-1.0); MONOCYTES % (AUTO) 7.5 % (1.7-9.3); NEUTROPHILS # (AUTO) 4.5 K/uL (1.8-7.7); NEUTROPHILS % (AUTO) 61.8 % (42.2-75.2); PLATELET COUNT (AUTO) 229 K/uL (140-450); RED CELL DISTRIBUTION WIDTH 21.6 % (11.6-13.7); WHITE BLOOD COUNT (AUTO) 7.3 K/uL (4.8-10.8)
[2021-05-30 07:04] LABS: ANION GAP 6.5 (8-16); CARBON DIOXIDE 37.9 mmol/L (21-32); POTASSIUM 4.4 mmol/L (3.5-5.1)
--- NOTE | 2021-05-30 07:09 | NUR ---
ENDORSED TO DAY SHIFT RN FOR CONTINUITY OF CARE
--- NOTE | 2021-05-30 07:37 | NUR ---
REPORT RECEIVED FROM NIGHT NURSE PT CAME FOR CHEST PAIN AND WORSENING OF SOB. PT HAS HX OF HTN, CHF, DM, ASTHMA, NEUROPATHY. DX IS CHEST PAIN, PT HAS NO KNOWN ALLERGY FULL CODE. ALERT ORIENTED X 4 ON CARDIAC DIET. LAST BLOOD GLUCOSE WAS 115. IV ON L AC 18 GAUGE. PT IS ON BIPAP FIO2 35% PTS CURRENT O2 SATURATION WAS 95%. WILL CONTINUE THE CURRENT PLAN OF CARE AND MONITOR PT.
[2021-05-30 08:00] VITALS: BP 92/64
[2021-05-30] MEDS: ATORVASTATIN 20 MG TAB PO SCH (08:15)
[2021-05-30] MEDS: PANTOPRAZOLE 40 MG TABEC PO SCH (08:15)
[2021-05-30] MEDS: ECOTRIN 81 MG TABEC PO SCH (08:15)
[2021-05-30] MEDS: ENOXAPARIN 40 MG/0.4 ML SYR SUBQ SCH (08:16)
[2021-05-30] MEDS: INSULIN LANTUS 100 UNITS/ML 10 ML VIAL SUBQ SCH ×2 (08:20→21:00)
[2021-05-30] MEDS: FUROSEMIDE 40 MG/4 ML VIAL IVP SCH ×2 (08:36→16:38)
[2021-05-30] MEDS: lisinopriL 5 MG TAB PO SCH (08:37)
--- NOTE | 2021-05-30 08:37 | NUR ---
ADMINISTERED ALL MEDICATIONS EXCEPT FRO LASIX AND LISINOPRIL PER PARAMETER, BP 95/51 FL 61. 30 UNITS OF LANTUS GIVEN BLOOD GLUCOSE WAS 155. WILL CONTINUE TO MONITOR PT.
--- NOTE | 2021-05-30 09:06 | NUR ---
PATIENT HAS BEEN SCREENED AND CATEGORIZED MODERATE NUTRITION RISK. PATIENT WILL BE SEEN WITHIN 3-5 DAYS OF ADMISSION. 06/01/21 06/03/[address]
--- NOTE | 2021-05-30 10:29 | NUR ---
INFORMED DOCTOR ANALY ABOUT LOW BP OF THE PT AND HOLDING LASIX. DOCTOR SUGGESTED TO CONTINUE TO MONITOR PT NO NEW ORDERS RECEIVED.
--- NOTE | 2021-05-30 11:42 | NUR ---
PT'S RECEIVED ROCEPHIN RUNNING AT 100ML/HR. BP IS 83/54 HR 73 MADE DOCTOR AWARE OF IT AWAITING FOR FURTHER ORDERS. BLOOD SUGAR 194. WILL CONTINUE TO MONITOR PT.
[2021-05-30] MEDS: INSULIN LISPRO SLIDING SCALE 100 UNITS/ML VIAL SUBQ PRN ×2 (11:54→16:38)
[2021-05-30 12:00] VITALS: BP 83/54
[2021-05-30] MEDS: MIDODRINE 5 MG TAB PO SCH ×2 (12:35→16:33)
[2021-05-30] MEDS: acetaZOLAMIDE sodium 250 MG in NACL 0.9% 50 ML IV SCH (12:35)
--- NOTE | 2021-05-30 12:46 | NUR ---
ADMINISTERED SCHEDULED MEDICATION AND MIDODRINE 10 MG PATIENT BP IS 83/[address] BECKFORD AWARE. WILL DANICA ROMEOE TO MONITOR.
--- NOTE | 2021-05-30 13:42 | NUR ---
DC PLANNING: ORDER RECEIVED FOR BIPAP, ATTEMPTED TO REACH [facility] BRAIDED RUG MAKER MULTIPLE TIMES, MESSAGES LEFT FOR CALL BACK. ORDER FAXED TO [facility] TO [place]. QUAN WILL FOLLOW FOR NEEDS. Addendum: 05/30/21 at 1603 by Radha Rai CM DC PLANNING: [facility] UP WITH [facility] QUAN IVERSON ([phone]). QUAN ALSO SPOKE TO THE PATIENT WHO LIVES IN A SINGLE STORY HOUSE WITH HER DAUGHTER. 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 STATES SHE IS INDEPENDENT USING FWW AND BATHES AND DRESSES HERSELF. HAS STARTED TO FOLLOW UP WITH HER PCP AGAIN AND HAS AN APPOINTMENT SCHEDULED IN THE NEXT 2 WEEKS. PLAN IS TO DC HOME WITH HOME HEALTH AND NEW DME OF BIPAP. QUAN WILL FOLLOW FOR NEEDS. Addendum: 05/31/21 at 1116 by Radha Rai CM DC PLANNING: FORM FOR HOME BIPAP COMPLETED BY DR JANESSA CM FAXED TO THE COMPANY SUPPLYING IT, [employer]. PER DR BECKFORD PATIENT NOT READY FOR DC TODAY, MAYBE IN AM IF PATIENTS RESPIRATORY STATUS IS STABLE. PLAN IS FOR PATIENT TO DC TO HOME, CM WILL FOLLOW FOR NEEDS. Addendum: 06/01/21 at 1225 by Radha Rai CM DC PLANNING: QUAN SPOKE WITH QUAN IVERSON AT [facility] F/U ON PATIENTS BIPAP, KISHOR STATES THAT THE PATIENT ALREADY HAS A HOME BIPAP AND WILL GO TO THE HOME TO ADJUST HER SETTINGS PER MD ORDERS. ALSO STATES THAT THE PATIENT KISHOR THAT SHE HASN'T USED HER BIPAP IN FIVE MONTHS. TC TO [employer] AT [phone] WHO CONFIRMED THAT THEY HAVE RESET THE PATIENTS BIPAP REMOTELY, INSTRUCTIONS LEFT FOR PATIENT ON HER CELL PHONE, QUAN ALSO SPOKE WITH THE PATIENT AND ENDORSED THAT HER SETTINGS HAVE BEEN CHANGED, AND THAT SHE NEEDS TO TURN THE MACHINE ON, THEN OFF THEN ON AGAIN FOR THE SETTINGS TO BECOME EFFECTIVE. QUAN WILL FOLLOW FOR NEEDS.
[2021-05-30 16:00] VITALS: BP 87/49
--- NOTE | 2021-05-30 16:40 | NUR ---
ADMINISTERED PRESCRIBED MEDICATIONS HELD LASIX BP WAS 87/49 HR 81. NOTIFIED MD AWAITING FOR ORDERS.
[2021-05-30] MEDS: HYDROcodone/APAP 5/325 MG 1 TAB TAB PO PRN (17:26)
--- NOTE | 2021-05-30 17:33 | NUR ---
ADMINISTERED NORCO. PT REPORTED PAIN 03/08. BP 110/68 HR 81.
--- NOTE | 2021-05-30 19:16 | NUR ---
ENDORSED THE NIGHT NURSE FOR CONTINUITY OF CARE PT IS STABLE.
--- NOTE | 2021-05-30 19:30 | NUR ---
RECEIVED ENDORSEMENT FROM RN DAYSHIFT NURSE AT BEDSIDE FOR CONTINUITY OF CARE, PT IN STABLE CONDITION.
[2021-05-30 20:00] VITALS: BP 100/62
--- NOTE | 2021-05-30 20:00 | NUR ---
PT ASSISTED TO COMMODE AND BACK. SHE IS AOX4 AND IS ON 7 LITERS VIA N/C SHE HAS IV LAC SITE INTACT AND RUNNING FLUIDS ORDERED. V/S FOLLOWS: T 98.1 P 80 R 20 B/P 100/62 02 99%. ALL ORDERED PRECAUTIONS IN PLACE.
--- NOTE | 2021-05-30 20:34 | NUR ---
PT WAS SEEN AND ASSESSED. PT ON 4L NASAL CANNULA. SPO2 93%. NO RESPIRATORY DISTRESS NOTED AT THIS TIME. WILL CONTINUE TO MONITOR PT.
[2021-05-30] MEDS: GABAPENTIN 300 MG CAP PO SCH (20:43)
--- NOTE | 2021-05-30 21:00 | NUR ---
FINGERSTICK IS 165. PT GIVEN ORDERED NEURONTIN. PT C/O OF SEVERE PAIN, BUT HAS C/O OF NORCO NOT WORKING. WILL SPEAK WITH MD CUTTER AND EDGE TRIMMER REGARDING PT REQUESTS. ALL ORDERED PRECAUTIONS ORDERED.
--- NOTE | 2021-05-30 22:00 | NUR ---
RIVETER MD HOWARD , WAS NOTIFED REGARDING PT REQUESTS FOR STRONGER PAIN MEDICATION WELL ORDERED LANTUS. PT HAS LANTUS 30UNITS ORDERED BUT F/S IS ONLY 165, NEW ORDER FOR X1 20 UNITS OF LANTUS AND IVP/PRN MORPHINE ORDERED FOR SEVERE PAIN.
[2021-05-30] MEDS ORDERED: INSULIN LANTUS 100 UNITS/ML 10 ML VIAL SUBQ ONE (22:30)
[2021-05-31] VITALS: BP 111/64
--- NOTE | 2021-05-31 | NUR ---
PT IN BED, SHE WAS ASSISTED TO COMMODE AND ALL OTHER REQUESTS ATTENDED BY STAFF. PT REMAINS ON 7 LITERS N/C IN PLACE V/S FOLLOWS: T 98.7 P 80 R 18 B/P 111/64 02 100%. ALL ORDERED PRECAUTIONS IN PLACE.
--- NOTE | 2021-05-31 01:02 | NUR ---
PLACED PT ON BiPAP FOR SLEEP. IPAP 16, EPAP 6, BACK UP RATE 20, FiO2 35%. SPO2 94%. WILL CONTINUE TO MONITOR PT.
[2021-05-31 04:00] VITALS: BP 105/58
--- NOTE | 2021-05-31 06:00 | NUR ---
PT TAKEN OFF BIPAP, PLACED ON 7 LITERS VIA N/C. PT IS A PIVOT TRANSFER TO BEDSIDE COMMODE. FINGERSTICK 133 . NO COVERAGE NEEDED.
[2021-05-31] MEDS: LEVOTHYROXINE 0.1 MG TAB PO SCH (06:30)
[2021-05-31 07:18] LABS: ANION GAP 5.4 (8-16); CREATININE 1.1 mg/dL (0.6-1.3); POTASSIUM 4.4 mmol/L (3.5-5.1)
[2021-05-31 07:23] LABS: BASOPHILS # (AUTO) 0.2 K/uL (0.00-0.22); BASOPHILS % (AUTO) 2.2 % (0.0-2.0); EOSINOPHILS # (AUTO) 0.2 K/uL (0-0.4); EOSINOPHILS % (AUTO) 2.9 % (0.0-4.0); HEMATOCRIT 28.2 % (36-48); HEMOGLOBIN 8.4 g/dL (12.0-16.0); LYMPHOCYTES # (AUTO) 2.2 K/uL (2.5-16.5); LYMPHOCYTES % (AUTO) 28.7 % (20.5-51.1); MEAN CORPUSCULAR HEMOGLOBIN 23 pg (27-31); MEAN CORPUSCULAR HGB CONC 30 g/dL (33-37); MEAN CORPUSCULAR VOLUME 78.6 fL (80-94); MONOCYTES # (AUTO) 0.6 K/uL (0.8-1.0); NEUTROPHILS # (AUTO) 4.5 K/uL (1.8-7.7); NEUTROPHILS % (AUTO) 58.2 % (42.2-75.2); PLATELET COUNT (AUTO) 230 K/uL (140-450); RED BLOOD CELL COUNT(AUTO) 3.59 MIL/uL (4.20-5.40); RED CELL DISTRIBUTION WIDTH 20.9 % (11.6-13.7); WHITE BLOOD COUNT (AUTO) 7.7 K/uL (4.8-10.8)
[2021-05-31] MEDS: BLOOD GLUCOSE MONITORING 1 DEV DEV FS SCH ×3 (07:40→16:30)
[2021-05-31 08:00] VITALS: BP 100/62
--- NOTE | 2021-05-31 08:00 | NUR ---
RECEIVED REPORT FROM FOOD SERVICE TEAM MEMBER FOR CONTINUITY OF CARE. INITIAL ASSESSMENT INITIATED. PATIENT ALERT AWAKE ORIENTED X4. NOT IN DISTRESS NOTED. WITH IV ON THE LEFT AC DRY AND INTACT. ON OXYGEN @ 7L? MN SATURATING 95%. NEEDS ATTENDED, WILL CONTINUE TO MONITOR. DENIES PAIN AT THIS TIME. ON MONITOR SHOWS SR. PCR IS NEGATIVE AND REMOVED ON ISOLATION.
[2021-05-31] MEDS: ATORVASTATIN 20 MG TAB PO SCH (08:42)
[2021-05-31] MEDS: PANTOPRAZOLE 40 MG TABEC PO SCH (08:42)
[2021-05-31] MEDS: ECOTRIN 81 MG TABEC PO SCH (08:43)
[2021-05-31] MEDS: MIDODRINE 5 MG TAB PO SCH (08:43)
[2021-05-31] MEDS: lisinopriL 5 MG TAB PO SCH (08:43)
[2021-05-31] MEDS: FUROSEMIDE 40 MG/4 ML VIAL IVP SCH ×2 (08:44→18:32)
[2021-05-31] MEDS: ENOXAPARIN 40 MG/0.4 ML SYR SUBQ SCH (08:44)
[2021-05-31] MEDS: INSULIN LANTUS 100 UNITS/ML 10 ML VIAL SUBQ SCH ×2 (08:47→22:50)
--- NOTE | 2021-05-31 10:30 | NUR ---
SEEN BY DR. RIDDLE GROUNDS SUPERVISOR AND ANALY FELICIANO AT BEDSIDE. WILL CONTINUE TO MONITOR
[2021-05-31 12:00] VITALS: BP 100/62
[2021-05-31] MEDS: INSULIN LISPRO SLIDING SCALE 100 UNITS/ML VIAL SUBQ PRN ×3 (12:11→22:53)
[2021-05-31] MEDS: MORPHINE SULFATE 2 MG/ML SYR IVP PRN ×2 (12:18→23:06)
[2021-05-31] MEDS: acetaZOLAMIDE sodium 250 MG in NACL 0.9% 50 ML IV SCH (12:19)
[2021-05-31 16:00] VITALS: BP 120/65
--- NOTE | 2021-05-31 18:35 | NUR ---
PATIENT SITTING AT BEDSIDE, EATING DINNER, NOT IN PAIN AND DISTRESS. IN STABLE CONDITION. WILL ENDORSE TO THE NEXT SHIFT.
--- NOTE | 2021-05-31 19:30 | NUR ---
REPORT GIVEN AT BEDSIDE FOR CONTINUITY OF CARE. IN STABLE CONDITION.
[2021-05-31 20:00] VITALS: BP 125/62
[2021-05-31] MEDS: GABAPENTIN 300 MG CAP PO SCH (22:47)
[2021-06-01] VITALS: BP 110/59
--- NOTE | 2021-06-01 00:10 | NUR ---
UNABLE TO PUT PT ON THE BIPAP AT THIS TIME. PT ON THE PHONE WITH FAMILY. CAME BACK AN HR LATER PT SAID SHE HASN'T EAT DINER AND REQUESTED A SANDWICH. WILL DO SO WHENEVER PT IS READY.
[2021-06-01 04:00] VITALS: BP 115/60
--- NOTE | 2021-06-01 04:21 | NUR ---
PATIENT AT 1999 SLEEPING WITH02 ON 4 LITER N/C SAT98%. LUNGS DIMINISH TO LISTEN ABDOMEN SOFT OBESE WITH BOWEL SOUND PRESENT PATIENT ASK FOR SANDWICH AND APPLE JUICE. SHE SAID SHE DIDNT EAT HER BREAKFAST. PATIENT HAS 22 GA IN RIGHT HAND. NO IVF INFUSING. BLOOD SUGAR 164 2 UNITS OF HUMALOG GIVEN S.G., AND LANTUS 30 UNITS S.G. PATIENT C/O OF BACK PAIN MEDICATED WITH MORPHINE2 MG IVP. AND ZOFRAN 4 MG FOR NAUSEA. PATIENT WITH NO SIGNS OF RESPRITORY DISTRESS.
--- NOTE | 2021-06-01 05:25 | NUR ---
CHECKED ON THE PATIENT, PT TOOK OFF THE BIPAP MASK, SHE SAID THE BIPAP IS NOT COMFORTABLE AND DOESN'T WANT IT. PUT HER BACK ON 3L N/C SPO2 93%.
[2021-06-01] MEDS: MORPHINE SULFATE 2 MG/ML SYR IVP PRN ×3 (06:25→21:17)
[2021-06-01] MEDS: LEVOTHYROXINE 0.1 MG TAB PO SCH (06:25)
--- NOTE | 2021-06-01 06:44 | NUR ---
PATIENT C/O OF PAIN THIS A.M STATED PAIN IN LUNGS MEDICATED WITH MORPHINE 2 MG IVP. 0625.
[2021-06-01 07:23] LABS: BASOPHILS # (AUTO) 0.1 K/uL (0.00-0.22); BASOPHILS % (AUTO) 1.7 % (0.0-2.0); EOSINOPHILS # (AUTO) 0.2 K/uL (0-0.4); EOSINOPHILS % (AUTO) 2.2 % (0.0-4.0); HEMOGLOBIN 8.2 g/dL (12.0-16.0); LYMPHOCYTES # (AUTO) 2.1 K/uL (2.5-16.5); LYMPHOCYTES % (AUTO) 26.5 % (20.5-51.1); MEAN CORPUSCULAR HEMOGLOBIN 24 pg (27-31); MEAN CORPUSCULAR HGB CONC 30 g/dL (33-37); MEAN CORPUSCULAR VOLUME 77.5 fL (80-94); MONOCYTES # (AUTO) 0.7 K/uL (0.8-1.0); MONOCYTES % (AUTO) 8.4 % (1.7-9.3); NEUTROPHILS # (AUTO) 4.9 K/uL (1.8-7.7); NEUTROPHILS % (AUTO) 61.2 % (42.2-75.2); PLATELET COUNT (AUTO) 215 K/uL (140-450); RED BLOOD CELL COUNT(AUTO) 3.49 MIL/uL (4.20-5.40); RED CELL DISTRIBUTION WIDTH 20.8 % (11.6-13.7)
[2021-06-01] MEDS: BLOOD GLUCOSE MONITORING 1 DEV DEV FS SCH ×4 (07:30→21:13)
[2021-06-01 08:48] LABS: ANION GAP 10.7 (8-16); CARBON DIOXIDE 36.3 mmol/L (21-32); CREATININE 1.1 mg/dL (0.6-1.3)
[2021-06-01] MEDS: lisinopriL 5 MG TAB PO SCH (09:00)
[2021-06-01] MEDS: INSULIN LANTUS 100 UNITS/ML 10 ML VIAL SUBQ SCH ×2 (09:00→21:09)
[2021-06-01] MEDS ORDERED: FURO40TA9 PO (12:16)
[2021-06-01] MEDS ORDERED: METO50TE2 PO (12:16)
[2021-06-01] MEDS: PANTOPRAZOLE 40 MG TABEC PO SCH (12:40)
[2021-06-01] MEDS: ECOTRIN 81 MG TABEC PO SCH (12:40)
[2021-06-01] MEDS: ATORVASTATIN 20 MG TAB PO SCH (12:41)
[2021-06-01] MEDS: acetaZOLAMIDE sodium 250 MG in NACL 0.9% 50 ML IV SCH (13:19)
[2021-06-01] MEDS: ENOXAPARIN 40 MG/0.4 ML SYR SUBQ SCH (13:34)
--- NOTE | 2021-06-01 16:44 | NUR ---
DC PLANNING PATIENT IS A 56 YEAR OLD FEMALE ADMITTED ON A 05/28/21 FROM THE [facility] ER DUE TO SHORTNESS OF BREATH. JOVI MET WITH PATIENT AT BEDSIDE TO DISCUSS AND GATHER HER COLLATERAL INFORMATION. PATIENT REPORTED LIVING AT HOME WITH HER DAUGHTER ARBEN WARE. CLOSE ENOUGH FROM HER EMERGENCY CONTACT MOTHER JORDIN JERONIMO WHO IS THE ONE SHE HAS HER DECISION MAKER IN ADVANCE DIRECTIVES THAT SHE DISCLOSED SHE ALREADY HAS AT HOME AND DECLINED THE INF. PACKET PROVIDED BY JOVI. PATIENT REPORTED NOT HAVING ANY ISSUES GETTING OR TAKING HER MEDICATIONS FROM THE [facility] NEAR HER HOME IN [place] [facility]. PATIENT STATED THAT SHE HAS DME AT HOME WITH OH2,AND BIPAP,WALKER AND A WHEELCHAIR HOWEVER; IS REQUESTING A MOBILE HO2 MACHINE. SW STATED THAT SHE WILL BE ASSISTED WITH TRANSPORTATION BY HER MOTHER WHO WILL PICK HER UP FROM [facility] TO TAKE HER HOME. JOVI INFORMED HER THAT A FOLLOW UP APPOINTMENT WILL NEED TO BE SCHEDULED BY THESE MANAGER LAN AT TIME OF DC. PATIENT AGREED AND REPORTED THAT HER PCP IS MD. JARRELL ESPINAL IN [place], LAST VISIT SHE HAD WITH WAS TWO WEEKS AGO. JOVI THANK HER FOR HER INF. AND LEFT HER ROOM. SW WILL FOLLOW UP NEEDED. Addendum: 06/01/21 at 1654 by Brenda Donohue CM DC PLANNING JOVI CALLED PATIENT'S PCP JARRELL MERCER [facility] [id number]. SPOKE TO YUMIKO TO SCHEDULED HER FOLLOW UP APPOINTMENT. YUMIKO SCHEDULED PATIENT'S APPOINTMENT FOR Friday06/07/21 AT 13:30. SW MET WITH PATIENT AT BEDSIDE AND PROVIDED HER WITH HER APPOINTMENT INFORMATION CARD AND DISCUSS IN DETAIL THE SCHEDULED DATE AND TIME. PATIENT AGREED TO ATTEND AND THANK THESE MANAGER LAN FOR THE INFORMATION.
[2021-06-01] MEDS ORDERED: FUROSEMIDE 40 MG TAB PO SCH (17:00)
--- NOTE | 2021-06-01 18:07 | NUR ---
ASSISTING TRAVEL NURSE WITH MED PASS. PT ANOx4, MAKES NEEDS KNOWN. ALL VSS. ORIENT TO MEDICATION INDICATIONS AND SIDE EFFECTS. VERBALIZED UNDERSTANDING. ABLE TO SWALLOW PO MEDS WITHOUT INCIDENT. PRIMARY RN AWARE.
[2021-06-01 19:35] VITALS: BP 94/49
[2021-06-01 19:38] VITALS: BP 79/41
--- NOTE | 2021-06-01 20:00 | NUR ---
PATIENT HAS A DISCHARGE ORDER ONCE HOME O2 AND BIPAP BEEN DELIVERED. EQUIPMENT BEEN DELIVER HOWEVER PER PATIENT NO ONE CAN PICK HER UP TONIGHT. WILL LET RAFTER CUTTING MACHINE OPERATOR KNOW THE SITUATION.
[2021-06-01] MEDS: INSULIN LISPRO SLIDING SCALE 100 UNITS/ML VIAL SUBQ PRN (21:11)
[2021-06-01] MEDS: GABAPENTIN 300 MG CAP PO SCH (21:12)
--- NOTE | 2021-06-01 21:30 | NUR ---
FREIGHT ELEVATOR ERECTOR AT BEDSIDE.
--- NOTE | 2021-06-01 22:17 | NUR ---
PATIENT RECEIVED PRN PAIN MED - MORPHINE SULFATE AT 21:17, REASSESSED AT 22:17 AND PAIN DECREASED 4/10, KEPT COMFORTABLE, SAFETY MEASURES IN PLACE, WILL CONTINUE TO MONITOR.
--- NOTE | 2021-06-01 23:24 | NUR ---
2310 PLACED PT ON BIPAP 16/6 RR 20 FIO2 35%.
[2021-06-02] VITALS: BP 116/56
[2021-06-02 04:00] VITALS: BP 114/68
--- NOTE | 2021-06-02 05:31 | NUR ---
0500 PATIENT TOOK OFF BIPAP. SHE WANTS HER PAIN MEDS
[2021-06-02] MEDS: LEVOTHYROXINE 0.1 MG TAB PO SCH (06:14)
[2021-06-02] MEDS: HYDROcodone/APAP 5/325 MG 1 TAB TAB PO PRN (06:15)
[2021-06-02] MEDS: BLOOD GLUCOSE MONITORING 1 DEV DEV FS SCH (06:15)
--- NOTE | 2021-06-02 06:15 | NUR ---
PATIENT COMPLAINED OF PAIN NORCO IS GIVEN PER ORDER. WILL CONTINUE TO MONITOR.
[2021-06-02 06:59] LABS: ANION GAP 3.3 (8-16); CARBON DIOXIDE 39.9 mmol/L (21-32); CREATININE 1.1 mg/dL (0.6-1.3); POTASSIUM 4.2 mmol/L (3.5-5.1)
[2021-06-02 07:20] LABS: BASOPHILS # (AUTO) 0.1 K/uL (0.00-0.22); BASOPHILS % (AUTO) 1.3 % (0.0-2.0); EOSINOPHILS # (AUTO) 0.2 K/uL (0-0.4); EOSINOPHILS % (AUTO) 1.9 % (0.0-4.0); HEMATOCRIT 26.1 % (36-48); LYMPHOCYTES # (AUTO) 2.5 K/uL (2.5-16.5); MEAN CORPUSCULAR HEMOGLOBIN 23 pg (27-31); MEAN CORPUSCULAR HGB CONC 31 g/dL (33-37); MONOCYTES # (AUTO) 0.7 K/uL (0.8-1.0); MONOCYTES % (AUTO) 8.3 % (1.7-9.3); NEUTROPHILS # (AUTO) 5.1 K/uL (1.8-7.7); NEUTROPHILS % (AUTO) 59.5 % (42.2-75.2); PLATELET COUNT (AUTO) 179 K/uL (140-450); RED BLOOD CELL COUNT(AUTO) 3.43 MIL/uL (4.20-5.40); RED CELL DISTRIBUTION WIDTH 21.3 % (11.6-13.7); WHITE BLOOD COUNT (AUTO) 8.5 K/uL (4.8-10.8)
--- NOTE | 2021-06-02 07:20 | NUR ---
ENDORSED PATIENT TO DAY SHIFT NURSE FOR CONTINUITY OF CARE
--- NOTE | 2021-06-02 07:25 | NUR ---
RECEIVED REPORT FROM SHOTWELD OPERATOR FOR CONTINUITY OF CARE. INITIAL ASSESSMENT INITIATED. PATIENT ALERT AWAKE ORIENTED X4. NOT IN DISTRESS NOTED. WITH IV ON THE RIGHT HAND DRY AND INTACT. PATIENT OFF OXYGEN. NEEDS ATTENDED, WILL CONTINUE TO MONITOR. DENIES PAIN AT THIS TIME. ON MONITOR SHOWS SR. PATIENT INFORMED RN THAT FAMILY CAN COME PICK HER UP. PATIENT ASKED ABOUT DISCHARGE PROCESS. DISCHARGE INITIATED.
[2021-06-02] MEDS ORDERED: FURO40TA9 PO (07:29)
--- NOTE | 2021-06-02 07:50 | NUR ---
PATIENT SAID MOTHER JORDIN IS ON WAY TO PICK HER UP SO PT IS READY TO GO HOME.
--- NOTE | 2021-06-02 08:00 | NUR ---
DISCHARGE INSTRUCTIONS AND EDUCATION GIVEN TO PATIENT. PATIENT VERBALIZED UNDERSTANDING ABOUT DISCHARGE PRESCRIPTION OF PAIN MEDICATION, FOLLOW UP WITH PCP, SALESPERSON MEATS, AND SECONDS GRADER IN 1-2 WEEKS. IV REMOVED, IV CANNULA INTACT, MINIMAL BLEEDING NOTED. ID BANDS REMOVED, PATIENT WILL BE GETTING DRESSED IN HER OWN CLOTHING TO BE DISCHARGED HOME.
--- NOTE | 2021-06-02 08:15 | NUR ---
PATIENT WHEELED OFF FLOOR TO BE DISCHARGED HOME. PATIENT WILL BE PICKED UP BY MOTHER JORDIN. PATIENT TOOK ALL HER BELONGINGS WITH HER. PATIENT IN STABLE CONDITION.
[2021-06-02] MEDS ORDERED: METOPROLOL SUCCINATE 50 MG TABER PO SCH (09:00)
== END 2021-06-02 08:15 | disposition home or self-care (01) | DRG 133 ==
LOC: MED 20:33 → MTU 05-29 01:53 → INTOOBSV 05-29 01:53 → MTU 05-29 14:10 → OBSVTOIN 05-29 16:10
PROVIDERS: ADMIT Internal Medicine; ATTEND Internal Medicine
PROC: 5A09357 Assistance with Respiratory Ventilation, Less than 24 Consecutive Hours, Continuous Positive Airway Pressure (ICD-10-PCS; principal; 2021-05-29)
DX: J96.21 Acute and chronic respiratory failure with hypoxia (principal); I50.43 Acute on chronic combined systolic (congestive) and diastolic (congestive) heart failure; I42.9 Cardiomyopathy, unspecified; E66.2 Morbid (severe) obesity with alveolar hypoventilation; E11.65 Type 2 diabetes mellitus with hyperglycemia; D50.9 Iron deficiency anemia, unspecified; I25.10 Atherosclerotic heart disease of native coronary artery without angina pectoris; E03.9 Hypothyroidism, unspecified; I11.0 Hypertensive heart disease with heart failure; J96.22 Acute and chronic respiratory failure with hypercapnia; J45.909 Unspecified asthma, uncomplicated; Z20.822 Contact with and (suspected) exposure to COVID-19; Z79.2 Long term (current) use of antibiotics; Z79.899 Other long term (current) drug therapy; Z79.82 Long term (current) use of aspirin; Z79.4 Long term (current) use of insulin; Z82.5 Family history of asthma and other chronic lower respiratory diseases; Z82.61 Family history of arthritis; Z82.49 Family history of ischemic heart disease and other diseases of the circulatory system; Z84.1 Family history of disorders of kidney and ureter; Z68.41 Body mass index [BMI] 40.0-44.9, adult
CPT/HCPCS: G0378 ×14; 36415; 36600; 71045; 80048; 80053; 82803; 82948; 83036; 83880; 84439; 84443; 84479; 84484; 85025; 85610; 85730; 87081; 93005; 94660; J0696; J1120; J1650; J1815; J1940; J2270; J2405; J7060; Q0092; U0003

== ENCOUNTER 2021-07-02 17:40 | Emergency (ER) | payer MEDICAID, SELFPAY ==
[~2021-07-02] VITALS: Ht 167.6 cm; Wt 117.9 kg
[~2021-07-02 17:40] MED LIST changes: -FURO20TA8 PO; +FURO40TA9 PO; -LEVO750T2 PO; -METF-336 PO; +METO50TE2 PO
[2021-07-02 18:04] VITALS: BP 167/66
[2021-07-02 19:41] LABS: BASOPHILS # (AUTO) 0.1 K/uL (0.00-0.22); BASOPHILS % (AUTO) 0.9 % (0.0-2.0); EOSINOPHILS # (AUTO) 0.2 K/uL (0-0.4); EOSINOPHILS % (AUTO) 2.1 % (0.0-4.0); HEMATOCRIT 25.9 % (36-48); HEMOGLOBIN 7.7 g/dL (12.0-16.0); LYMPHOCYTES % (AUTO) 19.7 % (20.5-51.1); MEAN CORPUSCULAR HEMOGLOBIN 22 pg (27-31); MEAN CORPUSCULAR HGB CONC 30 g/dL (33-37); MEAN CORPUSCULAR VOLUME 71.9 fL (80-94); MONOCYTES # (AUTO) 0.7 K/uL (0.8-1.0); MONOCYTES % (AUTO) 6.8 % (1.7-9.3); NEUTROPHILS # (AUTO) 7.1 K/uL (1.8-7.7); NEUTROPHILS % (AUTO) 70.5 % (42.2-75.2); PLATELET COUNT (AUTO) 255 K/uL (140-450); RED CELL DISTRIBUTION WIDTH 22.2 % (11.6-13.7); WHITE BLOOD COUNT (AUTO) 10.1 K/uL (4.8-10.8)
[2021-07-02 19:51] LABS: ANION GAP 9.8 (8-16); CARBON DIOXIDE 32.6 mmol/L (21-32); POTASSIUM 4.4 mmol/L (3.5-5.1)
[2021-07-02] MEDS ORDERED: NACL 0.9% 1,000 ML IV ONE (20:10)
--- NOTE | 2021-07-02 20:15 | NUR ---
pt was taken to bed 08 via wheel chair
[2021-07-02] MEDS ORDERED: INSULIN REGULAR, HUMAN 100 UNIT/ML VIAL SUBQ ONE (20:20)
--- NOTE | 2021-07-02 20:50 | NUR ---
Pt seen PCP today and referred to ED to treat pt for chronic anemia. Hemoglobin 7.9. Pt states she feels weak. Pt has hx blood transfusion X2- 3wks ago and another about 5-6months ago. Pt has colonoscopy pending. Pt reports she has chest wall pain radiating shoulders due to her congestive HF and her normal work of breathing. Patient states, "all i want to do is sleep" and is wondering why she keeps losing so much blood. AAOx4. Naturally on 2L NC at home. Patient has some swelling +2 bilateral lower extremities. Allergies: NKA Med hx: DM, HTN, asthma, HDL, Neuropathy, Congestive HF
--- NOTE | 2021-07-02 20:56 | NUR ---
patient to the bathroom for urine collection
--- NOTE | 2021-07-02 21:18 | NUR ---
MUSTAPHA Babb at bedside for examination of patient
--- NOTE | 2021-07-02 21:27 | NUR ---
Female Hospital Medical Biller accompanied female patient for Rectal Exam.
[2021-07-02] MEDS ORDERED: HYDROcodone/APAP 5/325 MG 1 TAB TAB PO ONE (21:30)
--- NOTE | 2021-07-02 22:13 | NUR ---
DAUGHTER ARBEN JEANIE [phone]
--- NOTE | 2021-07-03 00:03 | NUR ---
patient complains of nausea-- ERMD made aware,; medicate with 4mg zofran iv
[2021-07-03] MEDS ORDERED: ONDANSETRON 4 MG/2 ML VIAL IVP ONE (00:05)
[2021-07-03] MEDS ORDERED: FERROUS SULFATE 325 MG TABEC PO ONE (00:09)
[2021-07-03] MEDS ORDERED: ONDANSETRON 4 MG ODT ONE (00:42)
--- NOTE | 2021-07-03 00:45 | NUR ---
spoke with patient about transferring to [facility] had some concerns about the facility and would rather go home if patient is only going to be observed. patient feels more cooperative and at ease. charge nurse also spoke with patient and is aware
--- NOTE | 2021-07-03 01:07 | NUR ---
Patient to be transferred to [facility]. Is being transferred due to insurance, observation, and higher level of care. Receiving facility has accepting physician and available space. ER physician has signed transfer form. Patient or responsible democrat has agreed to transfer and signed form. Patient belongings inventoried and will be sent with patient. Copy of nursing notes, lab reports, EKG, Physicians Orders and X-rays to be sent with patient. Report called to Cecil Rn at receiving facility. [facility] ambulance service has been called for transfer.
[2021-07-03 01:15] VITALS: BP 113/80
[2021-07-03] MEDS ORDERED: ONDANSETRON 4 MG ODT PO ONE (01:15)
--- NOTE | 2021-07-03 01:15 | NUR ---
patient left with [facility] transport team
[2021-07-03] MEDS ORDERED: FERROUS SULFATE 325 MG TABEC PO SCH (08:00)
[2021-07-03 15:28] LABS: FOLIC ACID 9.3 ng/mL (>3.0)
== END 2021-07-03 01:15 | disposition short-term general hospital (02) ==
LOC: MED 17:40
DX: D50.9 Iron deficiency anemia, unspecified (principal); K92.2 Gastrointestinal hemorrhage, unspecified; I11.0 Hypertensive heart disease with heart failure; I50.9 Heart failure, unspecified; E11.65 Type 2 diabetes mellitus with hyperglycemia; Z20.822 Contact with and (suspected) exposure to COVID-19; J45.909 Unspecified asthma, uncomplicated; Z86.39 Personal history of other endocrine, nutritional and metabolic disease; Z79.899 Other long term (current) drug therapy; Z79.891 Long term (current) use of opiate analgesic; Z79.4 Long term (current) use of insulin; Z79.82 Long term (current) use of aspirin; Z79.51 Long term (current) use of inhaled steroids
CPT/HCPCS: 36415; 80048; 82607; 82728; 82746; 83540; 84484; 85025; 86886; 86900; 86901; 87426; 93005; 96372; 99285; J1815; J2405; Q0162

== ENCOUNTER 2021-12-17 19:25 | Emergency (ER) | payer MEDICAID ==
[~2021-12-17] VITALS: Ht 167.6 cm; Wt 154.2 kg
[~2021-12-17 19:25] MED LIST changes: -LISI-648 PO; +LISI5TAB24 PO
--- NOTE | 2021-12-17 19:30 | NUR ---
PT BIBA TO BED 02.
[2021-12-17 19:33] VITALS: BP 130/70
--- NOTE | 2021-12-17 19:58 | NUR ---
ERMD AT BEDSIDE FOR EXAMINATION
--- NOTE | 2021-12-17 20:35 | NUR ---
JILLIAN GIVEN TO PURA SMALL ELECTRIC ENGINE TECHNICIAN
[2021-12-17 20:58] LABS: BASOPHILS # (AUTO) 0.1 K/uL (0.00-0.22); BASOPHILS % (AUTO) 1.3 % (0.0-2.0); EOSINOPHILS # (AUTO) 0.2 K/uL (0-0.4); EOSINOPHILS % (AUTO) 2.7 % (0.0-4.0); HEMATOCRIT 33.1 % (36-48); HEMOGLOBIN 10.6 g/dL (12.0-16.0); LYMPHOCYTES # (AUTO) 1.6 K/uL (2.5-16.5); MEAN CORPUSCULAR HEMOGLOBIN 26 pg (27-31); MEAN CORPUSCULAR HGB CONC 32 g/dL (33-37); MEAN CORPUSCULAR VOLUME 81.2 fL (80-94); MONOCYTES # (AUTO) 0.4 K/uL (0.8-1.0); MONOCYTES % (AUTO) 7.1 % (1.7-9.3); NEUTROPHILS # (AUTO) 3.8 K/uL (1.8-7.7); NEUTROPHILS % (AUTO) 62.9 % (42.2-75.2); PLATELET COUNT (AUTO) 188 K/uL (140-450); RED BLOOD CELL COUNT(AUTO) 4.08 MIL/uL (4.20-5.40); RED CELL DISTRIBUTION WIDTH 20.7 % (11.6-13.7)
[2021-12-17 21:18] LABS: ALBUMIN 3.4 g/dL (3.4-5.0); CARBON DIOXIDE 36.9 mmol/L (21-32); POTASSIUM 3.9 mmol/L (3.5-5.1); TOTAL BILIRUBIN 0.4 mg/dL (0.0-1.0)
[2021-12-17] MEDS ORDERED: FUROSEMIDE 100 MG/10 ML VIAL IVP ONE (21:35)
[2021-12-17] MEDS ORDERED: HYDROcodone/APAP 5/325 MG 1 TAB TAB PO ONE (21:35)
[2021-12-17] MEDS ORDERED: INSULIN REGULAR, HUMAN 100 UNIT/ML VIAL SUBQ ONE (21:40)
--- NOTE | 2021-12-17 22:11 | NUR ---
PATIENT AMBULATED TO THE BATHROOM WITH A STEADY GAIT
--- NOTE | 2021-12-17 22:14 | NUR ---
IV removed, catheter intact and site benign. Applied folded 4x4 gauze and tape to stop bleeding.
[2021-12-17 22:19] VITALS: BP 115/61
--- NOTE | 2021-12-17 22:19 | NUR ---
Patient discharged with v/s stable. Written and verbal after care instructions given and explained. Patient verbalized understanding. Ambulatory with steady gait. ID band removed. All questions addressed prior to discharge. Advised to follow up with PMD.
== END 2021-12-17 22:19 | disposition home or self-care (01) ==
LOC: MED 19:25
DX: I11.0 Hypertensive heart disease with heart failure (principal); Z20.822 Contact with and (suspected) exposure to COVID-19; I50.9 Heart failure, unspecified; E11.65 Type 2 diabetes mellitus with hyperglycemia; R35.89 Other polyuria; R63.1 Polydipsia; I25.2 Old myocardial infarction
CPT/HCPCS: 36415; 71045; 80053; 82948; 83880; 84484; 85025; 87426; 93005; 96372; 96374; 99285; J1815; J1940; Q0092

== ENCOUNTER 2022-06-18 16:13 | Emergency (ER) | payer MEDICAID, OTHER ==
[~2022-06-18] VITALS: Ht 162.6 cm; Wt 149.7 kg
[2022-06-18 16:13] VITALS: BP 129/64
--- NOTE | 2022-06-18 16:22 | NUR ---
BIBA TO ER BED 6
--- NOTE | 2022-06-18 16:56 | NUR ---
pt swabbed for covid(becca). handed to director labor standards
[2022-06-18 17:21] LABS: BASOPHILS # (AUTO) 0.1 K/uL (0.00-0.22); BASOPHILS % (AUTO) 1.4 % (0.0-2.0); EOSINOPHILS # (AUTO) 0.2 K/uL (0-0.4); EOSINOPHILS % (AUTO) 2.9 % (0.0-4.0); HEMATOCRIT 25.4 % (36-48); HEMOGLOBIN 7.7 g/dL (12.0-16.0); LYMPHOCYTES # (AUTO) 1.8 K/uL (2.5-16.5); LYMPHOCYTES % (AUTO) 27.4 % (20.5-51.1); MEAN CORPUSCULAR HEMOGLOBIN 23 pg (27-31); MEAN CORPUSCULAR HGB CONC 30 g/dL (33-37); MEAN CORPUSCULAR VOLUME 77.2 fL (80-94); MONOCYTES # (AUTO) 0.5 K/uL (0.8-1.0); MONOCYTES % (AUTO) 7.1 % (1.7-9.3); NEUTROPHILS # (AUTO) 4.1 K/uL (1.8-7.7); NEUTROPHILS % (AUTO) 61.2 % (42.2-75.2); PLATELET COUNT (AUTO) 141 K/uL (140-450); RED BLOOD CELL COUNT(AUTO) 3.29 MIL/uL (4.20-5.40); RED CELL DISTRIBUTION WIDTH 19.2 % (11.6-13.7); WHITE BLOOD COUNT (AUTO) 6.7 K/uL (4.8-10.8)
--- NOTE | 2022-06-18 17:30 | NUR ---
57YO FEMALE PT BIBA FROM HOME C/O HIGH BS ALONG WITH WEAKNESS AND DRY MOUTH. PT WAS GIVEN 1L NS ON TX. PRESENTS WITH YINA +3 PITTING EDEMA BELOW KNEES, TENDER TO TOUCH. ON 3L VIA NC - AT BASELINE. DENIES N/V/D, CHEST PAIN , FEVFER OR SOB. PT AAOX4, RESPIRATIONS EVEN AND UNLABORED. HOB POSITIONED PER COMFORT, BED AT LOWEST POSIITION, BED RAIL UPX2. HX: CHF, DM, HTN, NEUROPATHY NKA
[2022-06-18 17:45] LABS: PROTHROMBIN TIME 10.6 secs (10.8-13.4)
[2022-06-18 17:47] LABS: ALBUMIN 2.8 g/dL (3.4-5.0); ANION GAP 9.6 (8-16); CARBON DIOXIDE 33.4 mmol/L (21-32); TOTAL BILIRUBIN 0.3 mg/dL (0.0-1.0)
[2022-06-18] MEDS ORDERED: GABAPENTIN 300 MG CAP PO ONE (18:45)
--- NOTE | 2022-06-18 19:20 | NUR ---
REPORT GIVEN TO KATELYN HERRERA. ALL QUESTIONS ANSWERED. TRANSFER OF CARE AT THIS TIME
--- NOTE | 2022-06-18 19:39 | NUR ---
PATIENT PRESENTS TO ER WITH C/O YINA LOWER EXT SWELLING X1DAY. PAIN LEVEL OF 10/10. PT STATES SHE IS SWOLLEN IN GENERAL , TODAY IS WORSE. BLOOD SUGARS HAVE BEEN HIGH , PT STATES IS SHE UNDER ALOT OF STRESS. PT ON 3L O2 SP02 OF 96% NO DISTRESS NOTED. SWELLING TO HANDS DENIES PAIN IN HANDS. IS SOB DENIES CP. 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 BED AT LOWEST POSITION SIDE RAILS UP X2. COPD NEUROPATHY NKDA
--- NOTE | 2022-06-18 20:57 | NUR ---
Female Architecture Analyst accompanied female patient for Rectal Exam.
[2022-06-18] MEDS ORDERED: FAMOTIDINE 20 MG/2 ML VIAL IVP ONE (21:00)
[2022-06-18 21:19] LABS: BASOPHILS # (AUTO) 0.1 K/uL (0.00-0.22); BASOPHILS % (AUTO) 1.3 % (0.0-2.0); EOSINOPHILS # (AUTO) 0.2 K/uL (0-0.4); EOSINOPHILS % (AUTO) 2.9 % (0.0-4.0); HEMATOCRIT 26.9 % (36-48); LYMPHOCYTES # (AUTO) 1.6 K/uL (2.5-16.5); LYMPHOCYTES % (AUTO) 25.3 % (20.5-51.1); MEAN CORPUSCULAR HEMOGLOBIN 23 pg (27-31); MEAN CORPUSCULAR HGB CONC 30 g/dL (33-37); MONOCYTES # (AUTO) 0.4 K/uL (0.8-1.0); MONOCYTES % (AUTO) 6.3 % (1.7-9.3); NEUTROPHILS % (AUTO) 64.2 % (42.2-75.2); PLATELET COUNT (AUTO) 149 K/uL (140-450); RED BLOOD CELL COUNT(AUTO) 3.49 MIL/uL (4.20-5.40); RED CELL DISTRIBUTION WIDTH 19.1 % (11.6-13.7); WHITE BLOOD COUNT (AUTO) 6.2 K/uL (4.8-10.8)
[2022-06-18 21:45] LABS: CARBON DIOXIDE 36.3 mmol/L (21-32); POTASSIUM 4.3 mmol/L (3.5-5.1)
[2022-06-18 21:50] LABS: PROTHROMBIN TIME 10.4 secs (10.8-13.4)
[2022-06-18] MEDS ORDERED: FAMOTIDINE 20 MG/2 ML VIAL ONE (22:19)
--- NOTE | 2022-06-18 23:30 | NUR ---
MD TARANGO AT BEDSIDE ASSESSING PATIENT
--- NOTE | 2022-06-19 00:45 | NUR ---
BLOOD INFUSION STARTED. 15 MIN V/S. 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 RESP EVEN AND UNLABORED. HOB ELEVATED. EXPLAINED TO PT ON THE IMPORTANCE TO VERBALIZE ANY SX OF CP SOB AND NOT FEELING WELL.
--- NOTE | 2022-06-19 01:23 | NUR ---
PT RESTING . TOLERATING BLOOD TRANSFUSION. 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 RESP EVEN AND UNLABORED.
--- NOTE | 2022-06-19 02:45 | NUR ---
BLOOD INFUSION COMPLETE. LAST V/S TAKEN AND WNL. PT ASLEEP RESP EVEN AND UNLABORED. AWAITING [facility] FOR TRANSPORT
[2022-06-19 03:10] VITALS: BP 126/54
--- NOTE | 2022-06-19 03:10 | NUR ---
Patient to be transferred to [facility]. Is being transferred due to HIGHER LEVEL OF CARE. Receiving facility has accepting physician and available space. ER physician has signed transfer form. Patient or responsible alliance party has agreed to transfer and signed form. Patient belongings inventoried and will be sent with patient. Copy of nursing notes, lab reports, EKG, Physicians Orders and X-rays to be sent with patient. Report called Genevieve SUBRAMANIAN at receiving facility. [facility] ambulance service has been called for transfer. ETA is 15
--- NOTE | 2022-06-19 03:27 | NUR ---
[facility] HERE FOR TRANSPORT. REPORT CALLED TO ALFONSO SUBRAMANIAN AT [facility].
== END 2022-06-19 03:27 | disposition short-term general hospital (02) ==
LOC: MED 16:13
DX: E11.65 Type 2 diabetes mellitus with hyperglycemia (principal); Z20.822 Contact with and (suspected) exposure to COVID-19; K92.2 Gastrointestinal hemorrhage, unspecified; D64.9 Anemia, unspecified; I10 Essential (primary) hypertension; I50.9 Heart failure, unspecified; J45.909 Unspecified asthma, uncomplicated; E03.9 Hypothyroidism, unspecified; Z79.4 Long term (current) use of insulin; Z79.899 Other long term (current) drug therapy
CPT/HCPCS: 36415; 71045; 80048; 80053; 83880; 84484; 85025; 85610; 85730; 86886; 86900; 86901; 86920; 87426; 93005; 96374; 99291; J3490; P9016; Q0092

== ENCOUNTER 2023-05-24 17:33 | Emergency (ER) | payer MEDICAID ==
[~2023-05-24] VITALS: Ht 167.6 cm; Wt 115.7 kg
[~2023-05-24 17:33] MED LIST changes: -ACET-8386 PO; +ACET-8905 PO
[2023-05-24 17:38] VITALS: BP 134/63; PULSE 84; RESP 18; TEMP 97.2; O2SAT 96
[2023-05-24] MEDS ORDERED: NAPR-1704 PO ×2 (18:54→19:01)
[2023-05-24] MEDS ORDERED: DICL100G5 TP ×2 (18:54→19:01)
[2023-05-24 19:03] VITALS: BP 134/63; PULSE 84; RESP 18; TEMP 97.2; O2SAT 96
== END 2023-05-24 19:04 | disposition home or self-care (01) ==
LOC: MED 17:33
DX: S63.682A Other sprain of left thumb, initial encounter (principal); M79.644 Pain in right finger(s); I11.9 Hypertensive heart disease without heart failure; E11.9 Type 2 diabetes mellitus without complications; J45.909 Unspecified asthma, uncomplicated; Z79.4 Long term (current) use of insulin; Z79.899 Other long term (current) drug therapy; W22.8XXA Striking against or struck by other objects, initial encounter; Y93.89 Activity, other specified; Y92.89 Other specified places as the place of occurrence of the external cause; Y99.8 Other external cause status
CPT/HCPCS: 73140; 99283

== ENCOUNTER 2023-09-29 17:04 | Inpatient (IN) | payer MEDICAID, OTHER ==
[~2023-09-29] VITALS: Ht 163.8 cm; Wt 123.8 kg
[~2023-09-29 17:04] MED LIST changes: -CELE-136 PO; +DICL100G32 TP; +NAPR-1704 PO; +[UNRECOGNIZED DRUG - CODE] PO
[2023-09-29 17:07] VITALS: BP 130/50; PULSE 93; RESP 27; TEMP 98; O2SAT 94
[2023-09-29] MEDS ORDERED: ALBUTEROL 0.083% 2.5 MG/3 ML NEBU INH ONE (17:30)
[2023-09-29] MEDS ORDERED: IPRATROPIUM 0.02% 0.5 MG/2.5 ML NEBU INH ONE (17:30)
[2023-09-29] MEDS ORDERED: MAG SULF 2000 MG/WATER PREMIX 50 ML IV ONE (17:30)
[2023-09-29] MEDS ORDERED: methylPREDNISolone SS 125 MG/2 ML VIAL IVP ONE (17:30)
[2023-09-29 17:59] VITALS: PULSE 96; RESP 20; O2SAT 84; O2SAT 90
[2023-09-29 18:02] LABS: BASOPHILS # (AUTO) 0.1 K/uL (0.00-0.22); BASOPHILS % (AUTO) 1.5 % (0.0-2.0); EOSINOPHILS # (AUTO) 0.1 K/uL (0-0.4); EOSINOPHILS % (AUTO) 1.1 % (0.0-4.0); HEMATOCRIT 28.3 % (36-48); HEMOGLOBIN 8.2 g/dL (12.0-16.0); LYMPHOCYTES # (AUTO) 1.7 K/uL (2.5-16.5); LYMPHOCYTES % (AUTO) 25.8 % (20.5-51.1); MEAN CORPUSCULAR HEMOGLOBIN 17 pg (27-31); MEAN CORPUSCULAR HGB CONC 29 g/dL (33-37); MEAN CORPUSCULAR VOLUME 59.6 fL (80-94); MONOCYTES # (AUTO) 0.8 K/uL (0.8-1.0); MONOCYTES % (AUTO) 11.6 % (1.7-9.3); NEUTROPHILS # (AUTO) 3.9 K/uL (1.8-7.7); PLATELET COUNT (AUTO) 261 K/uL (140-450); RED BLOOD CELL COUNT(AUTO) 4.75 MIL/uL (4.20-5.40); RED CELL DISTRIBUTION WIDTH 21.1 % (11.6-13.7); WHITE BLOOD COUNT (AUTO) 6.5 K/uL (4.8-10.8)
[2023-09-29 18:12] LABS: ANION GAP 6.9 (8-16); CALCIUM 8.5 mg/dL (8.5-10.1); CARBON DIOXIDE 34.4 mmol/L (21-32); CREATININE 0.8 mg/dL (0.6-1.3); POTASSIUM 4.3 mmol/L (3.5-5.1)
[2023-09-29 18:19] LABS: ALANINE AMINOTRANSFERASE 30 U/L (12-78); ALBUMIN 2.8 g/dL (3.4-5.0); ALKALINE PHOSPHATASE 188 U/L (50-136); ASPARTATE AMINOTRANSFERASE 45 U/L (15-37); BILIRUBIN,DIRECT 0.1 mg/dL (0.0-0.3); TOTAL BILIRUBIN 0.3 mg/dL (0.0-1.0); TOTAL PROTEIN, SERUM 8.4 g/dL (6.4-8.2)
[2023-09-29 18:21] LABS: LACTIC ACID 1.3 mmol/L (0.4-2.0)
[2023-09-29] MEDS ORDERED: FUROSEMIDE 40 MG/4 ML VIAL IVP ONE (18:25)
[2023-09-29 18:40] VITALS: BP 125/51; PULSE 102; RESP 20; O2SAT 100
[2023-09-29 20:22] LABS: APPEARANCE,URINE CLEAR (CLEAR); COLOR,URINE YELLOW (YELLOW)
[2023-09-29 20:23] LABS: BILIRUBIN,URINE NEGATIVE (NEGATIVE); BLOOD, URINE NEGATIVE (NEGATIVE); LEUKOCYTE ESTERASE ,URINE 1+ (NEGATIVE); NITRITE, URINE NEGATIVE (NEGATIVE); PROTEIN,URINE NEGATIVE (NEGATIVE); UGLUCOSE 3+ (NEGATIVE); UROBILINOGEN,URINE 0.2 EU/dL (0.2 - 1)
[2023-09-29 20:25] LABS: RBC,URINE 0-5 /HPF (0-5)
[2023-09-29 20:27] LABS: BACTERIA,URINE FEW /HPF (None Seen); SQUAMOUS EPITHELIAL CELL,UR 0-3 (FEW) /LPF (0-3 (FEW))
[2023-09-29 20:45] LABS: FLU A ANTIGEN negative (NEGATIVE); FLU B ANTIGEN NEGATIVE (NEGATIVE)
[2023-09-29] MEDS ORDERED: ACETAMINOPHEN 325 MG TAB PO PRN (21:30)
[2023-09-29] MEDS ORDERED: ONDANSETRON 4 MG/2 ML VIAL IVP PRN (21:30)
[2023-09-29] MEDS ORDERED: ALBUTEROL 0.083% 2.5 MG/3 ML NEBU INH PRN (21:30)
[2023-09-30] VITALS (10 sets, daily range): BP systolic 114–133; BP diastolic 67–80; PULSE 64–102; RESP 12–24; TEMP 97.1–97.6; O2SAT 96–100
[2023-09-30] MEDS: ALBUTEROL 0.083% 2.5 MG/3 ML NEBU INH SCH ×4 (00:48→19:36)
[2023-09-30] MEDS: IPRATROPIUM 0.02% 0.5 MG/2.5 ML NEBU INH SCH ×4 (00:48→19:35)
[2023-09-30] MEDS ORDERED: HYDROcodone/APAP 5/325 MG 1 TAB TAB ONE (02:05)
[2023-09-30] MEDS: HYDROcodone/APAP 5/325 MG 1 TAB TAB PO PRN ×4 (03:04→23:00)
[2023-09-30] MEDS ORDERED: methylPREDNISolone SS 40 MG in WATER STERILE 1 ML IVP SCH (05:00)
[2023-09-30] MEDS ORDERED: methylPREDNISolone SS 40 MG/ML VIAL ONE (05:21)
[2023-09-30] MEDS ORDERED: WATER STERILE 10 ML MC ONE (05:21)
[2023-09-30 06:46] LABS: LYMPHOCYTES # (AUTO) 0.8 K/uL (2.5-16.5); LYMPHOCYTES % (AUTO) 14.1 % (20.5-51.1); MONOCYTES # (AUTO) 0.2 K/uL (0.8-1.0); MONOCYTES % (AUTO) 4.2 % (1.7-9.3)
[2023-09-30] MEDS: LEVOTHYROXINE 0.1 MG TAB PO SCH (06:49)
[2023-09-30 07:12] LABS: MEAN CORPUSCULAR HGB CONC 29 g/dL (33-37)
[2023-09-30 07:20] LABS: ALBUMIN 2.7 g/dL (3.4-5.0); ANION GAP 10.4 (8-16); CALCIUM 8.7 mg/dL (8.5-10.1); CARBON DIOXIDE 32.4 mmol/L (21-32); POTASSIUM 4.8 mmol/L (3.5-5.1); TOTAL BILIRUBIN 0.3 mg/dL (0.0-1.0); TOTAL PROTEIN, SERUM 8.5 g/dL (6.4-8.2)
[2023-09-30 07:25] LABS: HEMATOCRIT 27.6 % (36-48); HEMOGLOBIN 8.1 g/dL (12.0-16.0); MEAN CORPUSCULAR VOLUME 59.6 fL (80-94); RED BLOOD CELL COUNT(AUTO) 4.63 MIL/uL (4.20-5.40); WHITE BLOOD COUNT (AUTO) 5.7 K/uL (4.8-10.8)
[2023-09-30 07:26] LABS: BASOPHILS % (AUTO) 0.1 % (0.0-2.0); MEAN CORPUSCULAR HEMOGLOBIN 17 pg (27-31); NEUTROPHILS % (AUTO) 81.6 % (42.2-75.2); PLATELET COUNT (AUTO) 259 K/uL (140-450); RED CELL DISTRIBUTION WIDTH 20.9 % (11.6-13.7)
[2023-09-30 07:27] LABS: NEUTROPHILS # (AUTO) 4.6 K/uL (1.8-7.7)
[2023-09-30] MEDS ORDERED: DEXTROSE 50% 50 ML SYR IVP PRN (08:00)
[2023-09-30] MEDS ORDERED: INSULIN LANTUS 100 UNITS/ML 10 ML VIAL SUBQ SCH (09:00)
[2023-09-30] MEDS: PANTOPRAZOLE 40 MG TABEC PO SCH (09:27)
[2023-09-30] MEDS: ASPIRIN 81 MG TAB.CHEW PO SCH (09:29)
[2023-09-30] MEDS: lisinopriL 20 MG TAB PO SCH (09:29)
[2023-09-30] MEDS: ENOXAPARIN 40 MG/0.4 ML SYR SUBQ SCH (09:32)
[2023-09-30] MEDS: INSULIN LANTUS 100 UNITS/ML 10 ML VIAL SUBQ SCH ×2 (09:33→21:54)
[2023-09-30] MEDS: BLOOD GLUCOSE MONITORING 1 DEV DEV FS SCH ×3 (11:38→20:45)
[2023-09-30] MEDS ORDERED: BLOOD GLUCOSE MONITORING 1 DEV DEV FS SCH (12:55)
[2023-09-30] MEDS: methylPREDNISolone SS 40 MG/ML VIAL IVP SCH ×2 (13:12→20:55)
[2023-09-30] MEDS: INSULIN LISPRO SLIDING SCALE 100 UNITS/ML VIAL SUBQ PRN ×2 (13:14→16:58)
[2023-09-30] MEDS ORDERED: INSULIN LISPRO 100 UNITS/ML VIAL SUBQ ONE (20:25)
[2023-10-01] VITALS (11 sets, daily range): BP systolic 107–133; BP diastolic 55–73; PULSE 60–90; RESP 12–24; TEMP 97.4–98.2; O2SAT 95–100
[2023-10-01] MEDS: IPRATROPIUM 0.02% 0.5 MG/2.5 ML NEBU INH SCH ×4 (00:54→19:07)
[2023-10-01] MEDS: ALBUTEROL 0.083% 2.5 MG/3 ML NEBU INH SCH ×4 (00:54→19:07)
[2023-10-01] MEDS: LEVOTHYROXINE 0.1 MG TAB PO SCH (05:48)
[2023-10-01] MEDS: methylPREDNISolone SS 40 MG/ML VIAL IVP SCH ×3 (05:48→20:24)
[2023-10-01] MEDS: BLOOD GLUCOSE MONITORING 1 DEV DEV FS SCH ×4 (07:47→20:24)
[2023-10-01] MEDS: INSULIN LISPRO SLIDING SCALE 100 UNITS/ML VIAL SUBQ PRN ×4 (07:49→20:27)
[2023-10-01] MEDS: ASPIRIN 81 MG TAB.CHEW PO SCH (08:34)
[2023-10-01] MEDS: PANTOPRAZOLE 40 MG TABEC PO SCH (08:34)
[2023-10-01] MEDS ORDERED: PRED20TA6 PO (08:35)
[2023-10-01] MEDS: lisinopriL 20 MG TAB PO SCH (08:37)
[2023-10-01] MEDS: INSULIN LANTUS 100 UNITS/ML 10 ML VIAL SUBQ SCH ×2 (08:39→20:26)
[2023-10-01] MEDS ORDERED: ATI.5 PO (08:50)
[2023-10-01 09:02] LABS: BASOPHILS % (AUTO) 0.4 % (0.0-2.0); HEMATOCRIT 28.2 % (36-48); HEMOGLOBIN 8.1 g/dL (12.0-16.0); LYMPHOCYTES # (AUTO) 1.1 K/uL (2.5-16.5); LYMPHOCYTES % (AUTO) 16.3 % (20.5-51.1); MEAN CORPUSCULAR HEMOGLOBIN 17 pg (27-31); MEAN CORPUSCULAR HGB CONC 29 g/dL (33-37); MEAN CORPUSCULAR VOLUME 60.7 fL (80-94); MONOCYTES # (AUTO) 0.5 K/uL (0.8-1.0); MONOCYTES % (AUTO) 6.6 % (1.7-9.3); NEUTROPHILS # (AUTO) 5.4 K/uL (1.8-7.7); NEUTROPHILS % (AUTO) 76.7 % (42.2-75.2); PLATELET COUNT (AUTO) 274 K/uL (140-450); RED BLOOD CELL COUNT(AUTO) 4.65 MIL/uL (4.20-5.40); RED CELL DISTRIBUTION WIDTH 21.9 % (11.6-13.7)
[2023-10-01 09:08] LABS: ALBUMIN 2.8 g/dL (3.4-5.0); ANION GAP 10.5 (8-16); CALCIUM 8.8 mg/dL (8.5-10.1); CARBON DIOXIDE 30.6 mmol/L (21-32); CREATININE 0.8 mg/dL (0.6-1.3); POTASSIUM 5.1 mmol/L (3.5-5.1); TOTAL BILIRUBIN 0.3 mg/dL (0.0-1.0); TOTAL PROTEIN, SERUM 8.5 g/dL (6.4-8.2)
[2023-10-01] MEDS: LORazepam 1 MG TAB PO PRN (10:41)
[2023-10-01] MEDS: ENOXAPARIN 40 MG/0.4 ML SYR SUBQ SCH (10:41)
[2023-10-01] MEDS ORDERED: INSULIN LISPRO 100 UNITS/ML VIAL SUBQ SCH (12:43)
[2023-10-01] MEDS: HYDROcodone/APAP 5/325 MG 1 TAB TAB PO PRN (16:18)
[2023-10-01] MEDS ORDERED: DEXTROSE 50% 50 ML SYR IVP PRN (17:10)
[2023-10-01] MEDS: PROMETH/CODEINE 6.25-10MG/5ML 5 ML UDC PO PRN ×2 (17:29→23:31)
[2023-10-01] MEDS ORDERED: MIRTAZAPINE 15 MG TAB PO SCH (21:00)
[2023-10-02] VITALS (9 sets, daily range): BP systolic 108–130; BP diastolic 28–57; PULSE 57–78; RESP 14–22; TEMP 97–97.8; O2SAT 94–99
[2023-10-02] MEDS: IPRATROPIUM 0.02% 0.5 MG/2.5 ML NEBU INH SCH ×3 (00:16→13:43)
[2023-10-02] MEDS: ALBUTEROL 0.083% 2.5 MG/3 ML NEBU INH SCH ×3 (00:16→13:44)
[2023-10-02] MEDS: HYDROcodone/APAP 5/325 MG 1 TAB TAB PO PRN ×2 (02:11→10:19)
[2023-10-02] MEDS: methylPREDNISolone SS 40 MG/ML VIAL IVP SCH ×2 (05:33→13:17)
[2023-10-02] MEDS: LEVOTHYROXINE 0.1 MG TAB PO SCH (05:34)
[2023-10-02] MEDS: INSULIN LISPRO 100 UNITS/ML VIAL SUBQ SCH ×2 (07:49→11:47)
[2023-10-02] MEDS: BLOOD GLUCOSE MONITORING 1 DEV DEV FS SCH ×2 (07:49→11:45)
[2023-10-02] MEDS ORDERED: PROM473S4 PO ×2 (08:55→17:26)
[2023-10-02] MEDS: ASPIRIN 81 MG TAB.CHEW PO SCH (09:49)
[2023-10-02] MEDS: PANTOPRAZOLE 40 MG TABEC PO SCH (09:50)
[2023-10-02] MEDS: lisinopriL 20 MG TAB PO SCH (09:53)
[2023-10-02] MEDS: ENOXAPARIN 40 MG/0.4 ML SYR SUBQ SCH (09:54)
[2023-10-02] MEDS: INSULIN LANTUS 100 UNITS/ML 10 ML VIAL SUBQ SCH (10:02)
[2023-10-02] MEDS: LORazepam 1 MG TAB PO PRN (10:17)
[2023-10-02 10:36] LABS: BASOPHILS % (AUTO) 0.1 % (0.0-2.0); HEMATOCRIT 29.5 % (36-48); HEMOGLOBIN 8.5 g/dL (12.0-16.0); LYMPHOCYTES # (AUTO) 1.3 K/uL (2.5-16.5); LYMPHOCYTES % (AUTO) 13.9 % (20.5-51.1); MEAN CORPUSCULAR HEMOGLOBIN 17 pg (27-31); MEAN CORPUSCULAR HGB CONC 29 g/dL (33-37); MEAN CORPUSCULAR VOLUME 60.6 fL (80-94); MONOCYTES # (AUTO) 0.7 K/uL (0.8-1.0); MONOCYTES % (AUTO) 7.5 % (1.7-9.3); NEUTROPHILS # (AUTO) 7.3 K/uL (1.8-7.7); NEUTROPHILS % (AUTO) 78.5 % (42.2-75.2); PLATELET COUNT (AUTO) 268 K/uL (140-450); RED BLOOD CELL COUNT(AUTO) 4.88 MIL/uL (4.20-5.40); RED CELL DISTRIBUTION WIDTH 21.2 % (11.6-13.7); WHITE BLOOD COUNT (AUTO) 9.3 K/uL (4.8-10.8)
[2023-10-02 10:58] LABS: ALBUMIN 2.8 g/dL (3.4-5.0); ANION GAP 8.4 (8-16); CALCIUM 8.8 mg/dL (8.5-10.1); CARBON DIOXIDE 34.1 mmol/L (21-32); CREATININE 0.8 mg/dL (0.6-1.3); POTASSIUM 4.5 mmol/L (3.5-5.1); TOTAL BILIRUBIN 0.3 mg/dL (0.0-1.0); TOTAL PROTEIN, SERUM 8.6 g/dL (6.4-8.2)
[2023-10-02] MEDS ORDERED: ACET-8905 PO (17:26)
== END 2023-10-02 15:10 | disposition home or self-care (01) | DRG 420 ==
LOC: MED 17:04 → MMU 21:31 → MIC 09-30 12:13 → MTU 10-02 06:50
PROVIDERS: ADMIT Internal Medicine; ATTEND Internal Medicine
PROC: 5A09357 Assistance with Respiratory Ventilation, Less than 24 Consecutive Hours, Continuous Positive Airway Pressure (ICD-10-PCS; principal; 2023-09-29)
DX: E11.65 Type 2 diabetes mellitus with hyperglycemia (principal); J96.21 Acute and chronic respiratory failure with hypoxia; E44.0 Moderate protein-calorie malnutrition; I50.40 Unspecified combined systolic (congestive) and diastolic (congestive) heart failure; I11.0 Hypertensive heart disease with heart failure; J45.901 Unspecified asthma with (acute) exacerbation; E03.9 Hypothyroidism, unspecified; D50.9 Iron deficiency anemia, unspecified; E66.01 Morbid (severe) obesity due to excess calories; Z20.822 Contact with and (suspected) exposure to COVID-19; Z68.42 Body mass index [BMI] 45.0-49.9, adult; Z84.1 Family history of disorders of kidney and ureter; Z82.49 Family history of ischemic heart disease and other diseases of the circulatory system; Z82.0 Family history of epilepsy and other diseases of the nervous system; Z82.61 Family history of arthritis
CPT/HCPCS: 36415; 71045; 80048; 80053; 80076; 81001; 81003; 82948; 83605; 83880; 84443; 84484; 85025; 87040; 87081; 87086; 93005; 94640; 94644; 94660; 96365; 96375; 99291; J1650; J1815; J1940; J2920; J2930; J3475; J7613; J7644

== ENCOUNTER 2023-12-19 15:05 | Emergency (ER) | payer MEDICAID, OTHER ==
[~2023-12-19] VITALS: Ht 167.6 cm; Wt 129.3 kg
[~2023-12-19 15:05] MED LIST changes: +ATI.5 PO; +PRED20TA6 PO; +PROM473S4 PO
[2023-12-19 15:24] VITALS: BP 120/69; PULSE 90; RESP 16; TEMP 98; O2SAT 98
[2023-12-19] MEDS ORDERED: CEPH-588 PO (16:43)
[2023-12-19] MEDS ORDERED: IBUP-2213 PO (16:43)
[2023-12-19 16:49] VITALS: BP 127/62; PULSE 84; RESP 14; TEMP 97.5; O2SAT 99
[2023-12-19] MEDS: KETOROLAC 30 MG/ML VIAL IM ONE (16:51)
== END 2023-12-19 16:49 | disposition home or self-care (01) ==
LOC: MED 15:05
DX: B35.1 Tinea unguium (principal); L08.9 Local infection of the skin and subcutaneous tissue, unspecified; I11.0 Hypertensive heart disease with heart failure; I50.9 Heart failure, unspecified; J45.909 Unspecified asthma, uncomplicated; E11.9 Type 2 diabetes mellitus without complications; Z86.39 Personal history of other endocrine, nutritional and metabolic disease; Z79.899 Other long term (current) drug therapy; Z79.4 Long term (current) use of insulin; Z79.82 Long term (current) use of aspirin
CPT/HCPCS: 73630; 82948; 99283